=== PATIENT | female | born 1985 | race Caucasian/White ===

== ENCOUNTER → 2017-07-05 15:03 | Outpatient (CLI) | payer MEDICAID, SELFPAY ==
--- NOTE | 2017-07-05 15:08 | RAD_ITS ---
STUDY: X-RAY - LUMBAR SPINE REASON FOR EXAM: Female, 31 years old. Back pain without known injury TECHNIQUE: 5 view(s) of the lumbar spine were obtained. COMPARISON: None FINDINGS: Normal lumbar lordosis. There is no substantial scoliosis. There is a normal alignment of the vertebrae. Normal vertebral bodies and endplates. Normal disc space heights. The soft tissue structures are unremarkable. RAD/L/S Spine Min 4 Views IMPRESSION: Normal x-ray examination of the lumbar spine. Electronically Signed: Bucky Branham DO at 13:34 EDT Tel , Service support ,
--- NOTE | 2017-07-05 15:19 | RAD_ITS ---
STUDY: X-RAY - CERVICAL SPINE REASON FOR EXAM: Female, 31 years old. Neck pain TECHNIQUE: Five view(s) of the cervical spine were obtained. COMPARISON: None FINDINGS: Normal anterior atlantoaxial articulation. Normal odontoid process. There is straightening of the normal cervical lordosis. No significant abnormalities are seen in the vertebral bodies. The discs are normal in appearance. There is no prevertebral soft tissue swelling. The lung apices are clear. RAD/Cerv Spine 4 or 5 Views IMPRESSION: No significant abnormalities are seen radiographically in the cervical spine. Electronically Signed: Kristyn Azul MD at 15:09 EDT Tel Direct: [phone], Service support ,
== END ==
PROVIDERS: Visit Provider Chiropractor
DX: S33.5XXA Sprain of ligaments of lumbar spine, initial encounter (principal); S13.4XXA Sprain of ligaments of cervical spine, initial encounter; X58.XXXA Exposure to other specified factors, initial encounter; Y93.9 Activity, unspecified; Y92.9 Unspecified place or not applicable; Y99.9 Unspecified external cause status
CPT/HCPCS: 72050; 72110

== ENCOUNTER 2017-08-24 11:12 | Emergency (ER) | payer MEDICAID, SELFPAY ==
[2017-08-24 11:13] VITALS: BP 157/86; PULSE 74; RESP 20; TEMP 36.5; O2SAT 98; BMI 43.5
--- NOTE | 2017-08-24 11:49 | EKG12_ITS ---
Test Reason : CHEST PAIN Blood Pressure : / mmHG Vent. Rate : 078 BPM Atrial Rate : 078 BPM P-R Int : 144 ms QRS Dur : 084 ms QT Int : 372 ms P-R-T Axes : 038 053 039 degrees QTc Int : 424 ms Normal sinus rhythm Low voltage QRS Confirmed by JODY RODRIGUEZ, JOI ([id number]), story editor RIGO RONQUILLO ([id number]) on 08/30/2017 1:38:04 PM Referred By: RU/AR Confirmed By:JOI VERA MD
[2017-08-24 11:57] VITALS: BP 116/90; PULSE 79; RESP 13; O2SAT 98
[2017-08-24] MEDS: Aspirin 81 MG TAB.CHEW 324 MG PO (11:57)
[2017-08-24 12:07] LABS: Absolute Lymphocyte Count 2.07 X10^3/ul (0.83-4.51); Absolute Neutrophil Count 3.7 X10^3/uL (2.0-7.7); Basophil# 0.03 X10^3/uL; Basophil% 0.4 % (0-1); Eosinophils% 5.9 % (0-5); Hematocrit 45.1 % (37-47); Hemoglobin 15.3 g/dl (12.0-15.0); Lymphocyte # 2.07 X10^3/ul (4.0); Lymphocyte % 30.5 % (19-41); Mean Corp Hgb Conc 33.9 g/gl (32-36); Mean Corpuscular Hgb 31.8 pg (27.0-32.0); Mean Corpuscular Volume 93.8 fL (81-99); Mean Platelet Vol. 11.2 fl (6.2-12.0); Monocyte# 0.56 X10^3/uL; Monocyte% 8.2 % (0-10); Neutrophil # 3.72 X10^3/uL (2.7-7.7); Neutrophil % 54.9 % (47-70); Platelet Count 221 K/mm3 (150-450); RBC Distribution Width CV 12.7 % (11.6-14.6); RBC Distribution Width SD 43.5 fl (35.1-43.9); Red Blood Count 4.81 M/mm3 (4.2-5.4); White Blood Count 6.8 K/mm3 (4.4-11.0)
[2017-08-24 12:08] LABS: POSITIVE COUNT NO; POSITIVE DIFFERENTIAL NO; POSITIVE MORPHOLOGY NO
[2017-08-24] MEDS: 0.9% Normal Saline 1,000 ML 150 ML IV (12:08)
--- NOTE | 2017-08-24 12:25 | RAD_ITS ---
STUDY: X-RAY CHEST REASON FOR EXAM: Female, 31 years old. Chest pain. TECHNIQUE: Single AP portable view of the chest. COMPARISON: Comparison is made with prior study dated May 04, 2015. FINDINGS: EKG electrodes are seen. The lungs are clear and expanded. There is no demonstrated pleural abnormality. Normal size heart. Normal mediastinum and gay. Normal visualized pulmonary arteries. Normal visualized aortic arch and descending thoracic aorta. Normal visualized thoracic spine. Normal visualized ribs, clavicles, and shoulders. There is no demonstrated abnormality of the visualized soft tissue structures of the upper abdomen. RAD/Chest 1 View (Portable) IMPRESSION: Normal x-ray examination of the chest. Electronically Signed: Andrei Nascimento MD at 12:46 EDT Tel [phone], Service support ,
[2017-08-24 12:40] LABS: D-Dimer Quantitative (DVT/PE) 0.46 FEU/ug/m (0.27-0.49)
[2017-08-24 12:46] LABS: Anion Gap 6 (5-15); BUN 11 mg/dL (7-18); BUN/Creat Ratio 10.6 RATIO (10-20); Calcium,Total 8.4 mg/dL (8.5-10.1); Chloride 108 mmol/L (98-107); Creatinine, Serum 1.04 mg/dL (0.55-1.02); EST Glomerular Filtration Rate 65 mL/min (>60); Est Glom Filt Rate - Afr Amer 78 mL/min (>60); Estimated Creatinine Clearance 74.82 ml/min; Glucose 82 mg/dL (74-106); Potassium 4.4 mmol/L (3.5-5.1); Sodium Level 142 mmol/L (136-145)
[2017-08-24 13:07] VITALS: BP 128/93; PULSE 70; RESP 14; O2SAT 96
[2017-08-24 13:13] VITALS: PULSE 76; RESP 15
[2017-08-24] MEDS: Ipratropium/Albuterol Sulfate 3 ML AMPUL.NEB INHALATION (13:13)
--- NOTE | 2017-08-24 13:28 | ED.VISSUMM ---
- ER Visit Summary Date of Service: 08/24/17 Chief Complaint: [Is breath and chest pain] History of Present Illness: The patient is a 31 F presents the emergency department with shortness of breath for a month. Patient had chest tightness for over a month. Patient's been coughing with some brown sputum produced at times. Yesterday she noticed a lump in her left upper chest and discomfort over the area. Patient describes a pressure on her chest. Patient had some nausea. She has had fatigue. Patient states at times the discomfort in her chest will radiate to her left arm. Patient denies recent travel or surgery. Patient denies any fever although she has had some chills and some sweats off and on. Patient denies recent travel or surgery. [] Physical Examination: [HEENT-PERRLA, EOMI. Cranial nerves II through XII grossly intact. TMs clear. Mucous membranes moist. No adenopathy. Cardiovascular-regular rate and rhythm without murmur or ectopy Lungs-she has wheezing bilaterally, chest wall stable without crepitus or subcu emphysema. Patient has tenderness over the left upper chest where the first rib attaches to the sternum. I do not feel any other significant masses or soft tissue swellings. Abdomen-normoactive bowel sounds, soft, nontender, no rebound or rigidity, no peritoneal signs. Extremities-intact ?4, normal range of motion, normal pulses, atraumatic] Test Results: [EKG obtained on arrival showed a sinus rhythm with a ventricular rate of 78 bpm with no acute ST segment changes. CBC with differential 6.8, hemoglobin 15, hematocrit 45, platelets 227. Chemistries unremarkable. Troponin was less than 0.015. D-dimer was normal at 0.46. Chest x-ray was normal.] Emergency Department Course and Treatment: [Patient received a DuoNeb aerosol and her wheezing resolved. Treatment Plan: [Patient will be started on Zithromax and dispensed an albuterol MDI as well as prednisone.] Disposition: [Discharged home in stable condition] Impression: [Asthmatic bronchitis Chest mdtj-rfvsdxma-cazurmf muscular skeletal] This note was generated with [employer] dictation software. It may contain incorrect words, spelling, and punctuation that were not noted in review of the chart prior to signing ED Disposition - Plan for ED Patient: Chief Complaint: Shortness of Breath Referrals: Care Physician,No Primary [Primary Care Provider] -
--- NOTE | 2017-08-24 13:31 | ED.DCSUM_ITS ---
- ER Visit Summary Date of Service: 08/24/17 Chief Complaint: [Is breath and chest pain] History of Present Illness: The patient is a 31 F presents the emergency department with shortness of breath for a month. Patient had chest tightness for over a month. Patient's been coughing with some brown sputum produced at times. Yesterday she noticed a lump in her left upper chest and discomfort over the area. Patient describes a pressure on her chest. Patient had some nausea. She has had fatigue. Patient states at times the discomfort in her chest will radiate to her left arm. Patient denies recent travel or surgery. Patient denies any fever although she has had some chills and some sweats off and on. Patient denies recent travel or surgery. [] Physical Examination: [HEENT-PERRLA, EOMI. Cranial nerves II through XII grossly intact. TMs clear. Mucous membranes moist. No adenopathy. Cardiovascular-regular rate and rhythm without murmur or ectopy Lungs-she has wheezing bilaterally, chest wall stable without crepitus or subcu emphysema. Patient has tenderness over the left upper chest where the first rib attaches to the sternum. I do not feel any other significant masses or soft tissue swellings. Abdomen-normoactive bowel sounds, soft, nontender, no rebound or rigidity, no peritoneal signs. Extremities-intact ?4, normal range of motion, normal pulses, atraumatic] Test Results: [EKG obtained on arrival showed a sinus rhythm with a ventricular rate of 78 bpm with no acute ST segment changes. CBC with differential 6.8, hemoglobin 15, hematocrit 45, platelets 227. Chemistries unremarkable. Troponin was less than 0.015. D-dimer was normal at 0.46. Chest x-ray was normal.] Emergency Department Course and Treatment: [Patient received a DuoNeb aerosol and her wheezing resolved. Treatment Plan: [Patient will be started on Zithromax and dispensed an albuterol MDI as well as prednisone.] Disposition: [Discharged home in stable condition] Impression: [Asthmatic bronchitis Chest opys-jfggfstz-nlwdrol muscular skeletal] This note was generated with [employer] dictation software. It may contain incorrect words, spelling, and punctuation that were not noted in review of the chart prior to signing ED Disposition - Plan for ED Patient: Chief Complaint: Shortness of Breath Referrals: Care Physician,No Primary [Primary Care Provider] -
--- NOTE | 2017-08-24 13:31 | ED.DEP ---
ED Disposition - Plan for ED Patient: Chief Complaint: Shortness of Breath Instructions: ED Bronchitis Asthmatic, ED Chest Pain Costochondritis Prescriptions: Azithromycin [Zithromax] 250 mg PO DAILY #4 tab Prednisone [Deltasone] 20 mg PO BID #10 tab Referrals: Care Physician,No Primary [Primary Care Provider] - Cody Meek MD [STAFF PHYSICIAN] - 5-7 Days
[2017-08-24] MEDS: Azithromycin 250 MG Tablet 500 MG PO (13:49)
[2017-08-24 13:50] VITALS: BP 138/94; PULSE 81; RESP 18; TEMP 36.6
--- NOTE | 2017-08-25 10:28 | CM.ED ---
ED CALLBACK: Follow-up call placed to patient. Voicemail left with return contact information.
== END 2017-08-24 13:52 | disposition home or self-care (01) ==
PROVIDERS: Emergency Provider Emergency Medicine
DX: J45.909 Unspecified asthma, uncomplicated (principal); R07.89 Other chest pain; Z72.0 Tobacco use
CPT/HCPCS: 71045; 80048; 84484; 85025; 85379; 93005; 94640; 96360; 96361; 99285; J7030; A4216

== ENCOUNTER 2018-01-11 10:34 | Emergency (ER) | payer MEDICAID, SELFPAY ==
[2018-01-11 10:35] VITALS: BP 149/101; PULSE 80; RESP 18; TEMP 36.6; O2SAT 98; BMI 46.5
[2018-01-11 11:26] VITALS: BP 131/78
[2018-01-11 11:30] LABS: Bedside Glucose 80 mg/dL (70-110)
--- NOTE | 2018-01-11 11:36 | ED.VISSUMM ---
- ER Visit Summary Date of Service: 01/11/18 Chief Complaint: Right leg pain History of Present Illness: The patient is a 32 F who states that for the past week she has had a hypersensitivity sensation lateral aspect of the right thigh. She states it also feels like there is a torch burning her skin from the inside. She denies any low back pain. No trauma. No history of diabetes. She has no family doctor. She is a smoker. She denies any rashes. Physical Examination: Afebrile vital signs stable Gen: Well-nourished well-developed Head: Normocephalic atraumatic Eyes: Perrl EOMI ENT: TMs clear no rhinorrhea moist mucous membranes Neck: Supple no lymphadenopathy no JVD nontender CVS: Regular rate rhythm no murmurs normal S1-S2 Respiratory: No distress clear to auscultation bilaterally chest nontender Abdomen: Soft nontender nondistended normal bowel sounds no masses Back: Nontender Extremity: Do not appreciate rash over the lateral aspect of the right thigh. Skin appears hypersensitive. No muscle wasting distally. No muscle weakness. No foot drop. No low back pain. Skin: Normal color no rash Neuro: alert orientated ?3 CN II-XII intact normal strength sensation reflexes gait cerebellar Psych: Normal affect normal mood Test Results: Blood sugar was 80 Emergency Department Course and Treatment: Patient was started on anti-inflammatories (Motrin) as well as prednisone. She is to establish primary care to arrange follow-up. Impression: 1. Peripheral neuropathy right thigh This note was generated with [employer] dictation software. It may contain incorrect words, spelling, and punctuation that were not noted in review of the chart prior to signing ED Disposition - Plan for ED Patient: Disposition: Home or Assisted Living Chief Complaint: Numb/Ting Instructions: ED Neuropathy Peripheral Prescriptions: Ibuprofen [Motrin] 800 mg PO TID PRN PRN #20 tab PRN Reason: Pain Prednisone 10 mg PO UD #33 tab Referrals: Deepika Corona MD [STAFF PHYSICIAN] -
--- NOTE | 2018-01-11 11:39 | ED.DCSUM_ITS ---
- ER Visit Summary Date of Service: 01/11/18 Chief Complaint: Right leg pain History of Present Illness: The patient is a 32 F who states that for the past week she has had a hypersensitivity sensation lateral aspect of the right thigh. She states it also feels like there is a torch burning her skin from the inside. She denies any low back pain. No trauma. No history of diabetes. She has no family doctor. She is a smoker. She denies any rashes. Physical Examination: Afebrile vital signs stable Gen: Well-nourished well-developed Head: Normocephalic atraumatic Eyes: Perrl EOMI ENT: TMs clear no rhinorrhea moist mucous membranes Neck: Supple no lymphadenopathy no JVD nontender CVS: Regular rate rhythm no murmurs normal S1-S2 Respiratory: No distress clear to auscultation bilaterally chest nontender Abdomen: Soft nontender nondistended normal bowel sounds no masses Back: Nontender Extremity: Do not appreciate rash over the lateral aspect of the right thigh. Skin appears hypersensitive. No muscle wasting distally. No muscle weakness. No foot drop. No low back pain. Skin: Normal color no rash Neuro: alert orientated ?3 CN II-XII intact normal strength sensation reflexes gait cerebellar Psych: Normal affect normal mood Test Results: Blood sugar was 80 Emergency Department Course and Treatment: Patient was started on anti- inflammatories (Motrin) as well as prednisone. She is to establish primary care to arrange follow-up. Impression: 1. Peripheral neuropathy right thigh This note was generated with [employer] dictation software. It may contain incorrect words, spelling, and punctuation that were not noted in review of the chart prior to signing ED Disposition - Plan for ED Patient: Disposition: Home or Assisted Living Chief Complaint: Numb/Ting Instructions: ED Neuropathy Peripheral Prescriptions: Ibuprofen [Motrin] 800 mg PO TID PRN PRN #20 tab PRN Reason: Pain Prednisone 10 mg PO UD #33 tab Referrals: Deepika Corona MD [STAFF PHYSICIAN] -
[2018-01-11 11:44] VITALS: RESP 16
--- NOTE | 2018-01-11 11:45 | ED.RN ---
REVIEWED D/C INSTRUCTIONS, FOLLOW UP CARE, PRESCRIPTIONS, AND S/S THAT WOULD WARRANT A RETURN TO THE ED WITH PT. PT VERBALIZED AN UNDERSTANDING AND DENIES FURTHER QUESTIONS FOR THIS RN. PT SKIN P/W/D, RESP EVEN AND UNLABORED, PT A&O X 3, NO DISTRESS NOTED. PT AMBULATED OUT OF ED, GAIT STEADY.
== END 2018-01-11 11:50 | disposition home or self-care (01) ==
LOC: ED 11:47
PROVIDERS: Emergency Provider Emergency Medicine
DX: G62.9 Polyneuropathy, unspecified (principal); F17.200 Nicotine dependence, unspecified, uncomplicated
CPT/HCPCS: 82962; 99282

== ENCOUNTER 2019-10-14 11:08 | Emergency (ER) | payer MEDICAID, SELFPAY ==
[2019-10-14 11:09] VITALS: BP 148/97; PULSE 92; RESP 18; TEMP 36.6; O2SAT 95; BMI 50.3
[2019-10-14 11:11] VITALS: BP 148/97; PULSE 92; RESP 18; TEMP 36.6; O2SAT 95
--- NOTE | 2019-10-14 11:24 | ED.VIS.GEN ---
History of Present Illness Chief Complaint: General Illness Informant: Patient Narrative: 34-year-old female with past medical history of asthma presents with concern for myalgias and cough. States that over the past 3 days she is feeling weak, nauseous, coughing, fevers. States this is been persistent. Went to urgent care this morning but was unable to be seen through a tele-visit. Was told she would be sent to the emergency department anyway. States that she has had 3 episodes of vomiting. Denies any urinary symptoms or abdominal pain. No sick contacts. Patient does work at [employer] where she regularly comes into contact with the public. Is a current smoker. Past Medical History - Allergies and Home Meds Allergies/Adverse Reactions: Allergies sulfamethoxazole [From Bactrim] Allergy (Verified 10/14/19 11:12) Hives trimethoprim [From Bactrim] Allergy (Verified 10/14/19 11:12) Hives Primary Care Physician: Care Physician,No Primary [Primary Care Provider] - Past Medical History: - - asthma Surgical History: - - on 10/30/13 Lives: Spouse/ Significant Other Smoking Status: Current every day smoker Alcohol: None Drugs: None - Family History Maternal Family History: Reports: No pertinent history Paternal Family History: Reports: No pertinent history Review of Systems General: Reports: Chills, Fever. Denies: Sweats Eyes: Denies: Visual changes - bilaterally, Diplopia ENT: Denies: Rhinorrhea, Sore throat Cardiovascular: Denies: Chest pain, Palpitations Respiratory: Reports: Cough. Denies: Dyspnea, Dyspnea on exertion Gastrointestinal: Reports: Nausea, Vomiting. Denies: Abdominal pain, Diarrhea, Melena, Hematochezia Genitourinary: Denies: Dysuria, Hematuria, Frequency Musculoskeletal: Reports: Myalgias. Denies: Back pain, Extremity Pain Skin: Denies: Rash, Wounds Neurological: Denies: Headache, Weakness, Numbness Physical Exam Vital Signs/Narrative: Vital Signs Temp Pulse Resp BP Pulse Ox 10/14/19 11:11 97.9 F 92 18 148/97 H 95 10/14/19 11:09 97.9 F 92 18 148/97 H 95 Inital Vital Signs reviewed: Yes General: Well nourished, Well developed, No Acute Distress Head: Normocephalic, Atraumatic Eyes: Perrl, EOMI ENT: Moist mucous membranes, No rhinorrhea Neck: Supple, Nontender Cardiovascular: Regular rate, Regular rhythm, No murmurs Respiratory: No distress, CTA bilaterally, Chest nontender Abdomen: Soft, Nontender, Nondistended, Normal bowel sounds Back: Nontender, Normal Inspection Extremities: Nontender, No edema Skin: Normal color, No rash Neurological: Alert, Oriented x3, Cranial nerves II-XII grossly intact, Normal Strength, Normal Sensation Psychological: Normal affect, Normal Mood Diagnostic/Tx/Re-eval Clinical Impression(s) from Imaging Studies Chest X-Ray 10/14/19 12:01 IMPRESSION: Normal x-ray examination of the chest. Electronically Signed: Andrei Azam, at 13:06 EDT , Service support , Laboratory Data 10/14/19 11:40 Urine Color Yellow Urine Clarity Sl. Cloudy Urine pH 6.5 Ur Specific [place] 1.015 Urine Protein Negative Urine Glucose (UA) Normal Urine Ketones Negative Urine Occult Blood Negative Urine Nitrite Negative Urine Bilirubin Negative Urine Urobilinogen Normal Ur Leukocyte Esterase Negative Urine RBC 0 SEEN Urine WBC 0 SEEN Ur Squamous Epith Cells 5-10 SEEN Urine Bacteria 1+ Urine Mucus 0 SEEN - Medical Decision Making Patient appears well and nontoxic. Vital signs within normal limits. Chest x-ray shows no pneumonia. Patient was given 1 L normal saline, Toradol, Zofran. Coronavirus testing pending. Advised on quarantine at home until results can be reported. Patient asked to return for new or worsening symptoms. Agreeable and discharged home in stable condition with Zofran and advised on continued p.o. hydration. ED Disposition - Plan for ED Patient: Disposition: Home or Assisted Living Diagnosis: URI (upper respiratory infection) Instructions: ED URI Viral Prescriptions: Ondansetron [Zofran Odt] 4 mg PO Q8H PRN PRN #10 tab PRN Reason: Nausea Transmission Status: Pending to [facility] #30 Referrals: Kilo Maya MD [STAFF PHYSICIAN] - Additional Instructions: Self quarantine at home until results can be reported from coronavirus testing. Practice good hand hygiene. Return for worsening shortness of breath.
[2019-10-14 11:57] LABS: Mucous, Urine 0 SEEN /hpf (<or=2+); Red Blood Cells-Urine 0 SEEN /hpf (0-5); White Blood Cells 0 SEEN /hpf (0-5)
[2019-10-14] MEDS: Ondansetron 4 MG/2 ML Vial IV (12:00)
[2019-10-14] MEDS: Ketorolac 15 MG/ML Vial IM (12:00)
[2019-10-14] MEDS: 0.9% Normal Saline 1,000 ML 999 ML IV (12:01)
--- NOTE | 2019-10-14 12:01 | RAD_ITS ---
STUDY: X-RAY CHEST REASON FOR EXAM: Female, 34 years old. FEVER,BODY ACHES, N/V TECHNIQUE: Single AP portable view of the chest. COMPARISON: Comparison is made with prior study August 24, 2017. FINDINGS: The lungs are clear and expanded. There is no demonstrated pleural abnormality. Normal size heart. Normal mediastinum and gay. Normal visualized pulmonary arteries. Normal visualized aortic arch and descending thoracic aorta. Normal visualized thoracic spine. Normal visualized ribs, clavicles, and shoulders. There is no demonstrated abnormality of the visualized soft tissue structures of the upper abdomen. RAD/Chest 1 View (Portable) IMPRESSION: Normal x-ray examination of the chest. Electronically Signed: Andrei Nascimento, at 13:06 EDT , Service support ,
[2019-10-14 12:14] LABS: Color, Urine Yellow (Yellow); Glucose, Dipstick Normal (Normal); Ketone-Dipstick Negative (Negative); Leukocyte Esterase-Dipstick Negative /ul (Negative); Nitrite-Dipstick Negative (Negative); Occult Blood-Urine Negative /ul (Negative); Protein-Dipstick Negative (Negative); Specific Gravity, Urine 1.015 (1.002-1.030); Urine Bilirubin Dipstick Negative (Negative); Urine Clarity Sl. Cloudy (Clear); Urine Urobilinogen Normal (Normal); Urine pH 6.5 (5.0 - 8.0)
[2019-10-14 12:27] LABS: Bacteria 1+ /hpf (None Seen); Squamous Epithelial Cells - UA 5-10 SEEN /hpf (5-10)
== END 2019-10-14 14:43 | disposition home or self-care (01) ==
PROVIDERS: Emergency Provider Emergency Medicine
DX: J06.9 Acute upper respiratory infection, unspecified (principal); J45.909 Unspecified asthma, uncomplicated; F17.200 Nicotine dependence, unspecified, uncomplicated
CPT/HCPCS: 71045; 81001; 87635; 99283; G2023; J7030; A4216; J2405; U0003

== ENCOUNTER 2020-03-02 19:07 | Emergency (ER) | payer MEDICAID, SELFPAY ==
[2020-03-02 19:08] VITALS: BP 151/101; PULSE 98; RESP 22; TEMP 36.4; O2SAT 98; BMI 47.0
--- NOTE | 2020-03-02 19:50 | ED.DCSUM_ITS ---
History of Present Illness Chief Complaint: Back Informant: Patient Onset: Yesterday Context: Gradual Onset Current Severity: Moderate Maximum Severity: Moderate Narrative: Patient presents with low back tightness over the past 2 days. She points right along the waistband on her lower back. Pain does go down to her right ankle into her left knee. No direct trauma or injury. She states after taking a nap this afternoon she had increased pain. Patient does report a mild dry cough and states she was notified on the way here that she was exposed to someone with Covid. Past Medical History - Allergies and Home Meds Allergies/Adverse Reactions: Allergies sulfamethoxazole [From Bactrim] Allergy (Verified 03/02/20 19:08) Hives trimethoprim [From Bactrim] Allergy (Verified 03/02/20 19:08) Hives Primary Care Physician: Care Physician,No Primary [Primary Care Provider] - Past Medical History: None Surgical History: - - on 10/30/13 Smoking Status: Current every day smoker - Family History Maternal Family History: Reports: No pertinent history Paternal Family History: Reports: No pertinent history Review of Systems General: Denies: Chills, Fever Eyes: Denies: Visual changes - bilaterally ENT: Denies: Bilateral ear pain Cardiovascular: Denies: Chest pain Respiratory: Reports: Cough. Denies: Dyspnea Gastrointestinal: Denies: Abdominal pain, Vomiting, Diarrhea Musculoskeletal: Reports: Back pain. Denies: Swelling Skin: Denies: Wounds Neurological: Denies: Headache, Weakness, Parasthesia Hematologic: Denies: Easy bruising, Easy bleeding Allergy: Denies: Uticaria Physical Exam Vital Signs/Narrative: Vital Signs Temp Pulse Resp BP Pulse Ox 03/02/20 19:08 97.6 F L 98 22 H 151/101 H 98 Inital Vital Signs reviewed: Yes General: Well nourished, Well developed Head: Normocephalic ENT: Moist mucous membranes Neck: Supple Cardiovascular: Regular rate, Regular rhythm Respiratory: No distress, CTA bilaterally Abdomen: Soft, Nontender Back: - - Reproducible tenderness in the low lumbar region as well as the bilateral paraspinal muscles. No skin change. Normal strength and sensation in the lower extremities. Skin: Normal color Neurological: Alert, Oriented x3, Normal Strength, Normal Sensation Psychological: Normal affect Diagnostic/Tx/Re-eval - Medical Decision Making Patient be treated with Naprosyn and Flexeril for her back. Covid swab will be sent and she will be texted the results. ED Disposition - Plan for ED Patient: Disposition: Home or Assisted Living Diagnosis: Lumbar strain, Muscle spasm Instructions: ED Muscle Spasm, ED Back Pain (Acute or Chronic) Prescriptions: cycloBENZAPRine HCl [Flexeril] 10 mg PO TID PRN #20 tab PRN Reason: Muscle Spasm Transmission Status: Pending to [facility] #30 Naproxen [Naprosyn] 500 mg PO BID PRN PRN #20 tab PRN Reason: Pain Score 4-10 Transmission Status: Pending to [facility] #30 Referrals: Kavon Tellez MD [STAFF PHYSICIAN] - As Needed
[2020-03-02] MEDS: cycloBENZAPRine HCl 10 MG Tablet PO (20:21)
[2020-03-02] MEDS: Naproxen 500 MG Tablet PO (20:21)
== END 2020-03-02 20:31 | disposition home or self-care (01) ==
LOC: ED 19:56
PROVIDERS: Emergency Provider Emergency Medicine
DX: S39.012A Strain of muscle, fascia and tendon of lower back, initial encounter (principal); M62.838 Other muscle spasm; F17.200 Nicotine dependence, unspecified, uncomplicated; X58.XXXA Exposure to other specified factors, initial encounter
CPT/HCPCS: 87426; 99283

== ENCOUNTER 2020-03-23 07:41 | Emergency (ER) | payer MEDICAID, SELFPAY ==
[2020-03-23 07:42] VITALS: BP 152/122; PULSE 86; RESP 16; TEMP 35.8; O2SAT 100; BMI 50.7
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
--- NOTE | 2020-03-23 08:52 | ED.DCSUM_ITS ---
- ER Visit Summary Date of Service: 03/23/20 Chief Complaint: Fall History of Present Illness: The patient is a 34 F who fell day night. She slipped and hit her head and the back of her neck. She is unsure if she lost consciousness. Her symptoms are worse with light and activity. She reports headache, blurry vision, nausea vomiting. No blood thinner use. Physical Examination: Afebrile and vital signs unremarkable except for hypertension. Head and neck are atraumatic. HEENT exam is unremarkable. She does have some tenderness to her left neck in the suboccipital region. Skin appears normal. Cranial nerves grossly intact. Normal strength, sensation, cerebellar testing. Test Results: CT brain and cervical spine showed straightening of the cervical spine, but otherwise unremarkable. No fracture or bleeding. Emergency Department Course and Treatment: Patient was treated with Motrin and Zofran. She was given concussion precautions. Work note. Outpatient follow- up. Treatment Plan: As above Disposition: Discharge Impression: Concussion, cervical strain This note was generated with [employer] dictation software. It may contain incorrect words, spelling, and punctuation that were not noted in review of the chart prior to signing ED Disposition - Plan for ED Patient: Referrals: Care Physician,No Primary [Primary Care Provider] -
--- NOTE | 2020-03-23 09:02 | ED.DEP ---
ED Disposition - Plan for ED Patient: Instructions: ED Concussion Prescriptions: Ondansetron [Zofran Odt] 4 mg PO Q8H PRN PRN #10 tab PRN Reason: Nausea Prescription Printed Referrals: Care Physician,No Primary [Primary Care Provider] -
[2020-03-23] MEDS: Ibuprofen 600 MG Tablet PO (09:05)
[2020-03-23] MEDS: Ondansetron ODT 4 MG Tablet PO (09:05)
--- NOTE | 2020-03-23 09:08 | ED.RN ---
DISCHARGE INSTRUCTIONS GIVEN TO AND REVIEWED WITH PATIENT, PATIENT DENIES QUESTIONS OR CONCERNS AND VOICES UNDERSTANDING OF DISCHARGE INSTRUCTIONS. PT AMBULATES OUT OF ROOM WITHOUT DIFFICULTY.
== END 2020-03-23 09:09 | disposition home or self-care (01) ==
LOC: ED 08:44
PROVIDERS: Emergency Provider Emergency Medicine
DX: S06.0X9A Concussion with loss of consciousness of unspecified duration, initial encounter (principal); S16.1XXA Strain of muscle, fascia and tendon at neck level, initial encounter; W01.10XA Fall on same level from slipping, tripping and stumbling with subsequent striking against unspecified object, initial encounter; Y93.9 Activity, unspecified; Y92.9 Unspecified place or not applicable; Y99.9 Unspecified external cause status; I10 Essential (primary) hypertension; Z72.0 Tobacco use
CPT/HCPCS: 70450; 72125; 99283

== ENCOUNTER 2020-06-03 18:53 | Emergency (ER) | payer MEDICAID, SELFPAY ==
[2020-06-03 18:54] VITALS: BP 156/111; PULSE 99; RESP 22; TEMP 35.9; O2SAT 98; BMI 47.0
[2020-06-03 19:37] VITALS: BP 122/94; PULSE 80; RESP 18; TEMP 36.9; O2SAT 100
--- NOTE | 2020-06-03 20:27 | EKG12_ITS ---
Test Reason : SOB Blood Pressure : / mmHG Vent. Rate : 086 BPM Atrial Rate : 086 BPM P-R Int : 142 ms QRS Dur : 094 ms QT Int : 382 ms P-R-T Axes : 029 063 044 degrees QTc Int : 457 ms Normal sinus rhythm Normal ECG Confirmed by JODY RODRIGUEZ, JOI ([id number]), supervising editor news reel ELSIE CASTILLO ([id number]) on 06/08/2020 2:33:16 PM Referred By: Confirmed By:JOI VERA MD
[2020-06-03] MEDS: Ipratropium/Albuterol Sulfate 3 ML AMPUL.NEB INHALATION (20:42)
[2020-06-03 20:50] VITALS: PULSE 88; RESP 20
[2020-06-03] MEDS: Ondansetron 4 MG/2 ML Vial IV (20:56)
[2020-06-03] MEDS: Ketorolac 30 MG/ML Syringe IV (20:56)
[2020-06-03] MEDS: 0.9% Normal Saline 1,000 ML 1000 ML IV (20:56)
[2020-06-03 21:06] VITALS: PULSE 90; RESP 18; O2SAT 100
--- NOTE | 2020-06-03 21:06 | RAD_ITS ---
STUDY: X-RAY CHEST REASON FOR EXAM: Female, 34 years old. Shortness of breath. TECHNIQUE: Frontal view of the chest COMPARISON: 10/14/19 FINDINGS: There is airspace opacity in the right lower lobe. The lungs are otherwise clear. There are no pleural effusions. There is no pneumothorax. The heart is normal in size. The visualized osseous structures are within normal limits. RAD/Chest 1 View (Portable) IMPRESSION: Right lower lobe infiltrate. Electronically Signed: Lele Klein MD at 21:32 EST Tel , Service support ,
[2020-06-03 21:25] LABS: D-Dimer Quantitative (DVT/PE) 0.48 FEU/ug/m (0.27-0.49)
[2020-06-03 22:02] VITALS: O2SAT 99
--- NOTE | 2020-06-03 22:07 | ED.DCSUM_ITS ---
- ER Visit Summary Date of Service: 06/03/20 Chief Complaint: Shortness of breath History of Present Illness: The patient is a 34 F presenting with shortness of breath, myalgias. Patient states this started yesterday. She complains of fatigue, myalgias. She has had sore throat, shortness of breath, nonproductive cough, nausea, vomiting. She has myalgias and headache. She denies fever. She states people at her work have been out sick as well. She denies known exposure to Covid. Denies other complaints. Physical Examination: Vitals are stable. Patient is afebrile. Alert no acute distress. Pulse ox 100% on room air HEENT exam is unremarkable. Pharynx is normal. Neck is supple. Lungs are wheezing bilaterally. Heart is regular rate and rhythm. Abdomen is soft nontender nondistended. Extremities are unremarkable. Skin is warm and dry. Remainder of exam is unremarkable. Emergency Department Course and Treatment: EKG is sinus rhythm rate of 86 with no acute ischemic changes. D-dimer is normal. Troponin is negative. Chest x-ray shows right lower lobe infiltrate. Covid is negative. Patient given albuterol, Atrovent aerosols. She is given Toradol, Zofran, IV fluids. Her ambulatory pulse ox is 96% on room air. She is resting comfortably on reevaluation. She will be started on doxycycline. She is advised to follow-up with her primary care physician. Advised return to ED for worsening complaints. Disposition: Discharge home Impression: Community-acquired pneumonia This note was generated with [employer] dictation software. It may contain incorrect words, spelling, and punctuation that were not noted in review of the chart prior to signing ED Disposition - Plan for ED Patient: Referrals: Care Physician,No Primary [Primary Care Provider] -
--- NOTE | 2020-06-03 22:12 | ED.DEP ---
ED Disposition - Plan for ED Patient: Instructions: ED Pneumonia (Adult) Prescriptions: Doxycycline 100 mg PO BID #20 cap Prescription Printed Referrals: Care Physician,No Primary [Primary Care Provider] -
[2020-06-03] MEDS: Doxycycline 100 MG CAPSULE PO (22:23)
[2020-06-03 22:24] VITALS: RESP 22
== END 2020-06-03 22:25 | disposition home or self-care (01) ==
LOC: ED 21:24
PROVIDERS: Emergency Provider Emergency Medicine
DX: J18.9 Pneumonia, unspecified organism (principal); Z20.822 Contact with and (suspected) exposure to COVID-19; R11.2 Nausea with vomiting, unspecified; Z72.0 Tobacco use
CPT/HCPCS: 71045; 84484; 85379; 87426; 93005; 94640; 96361; 96374; 96375; 99284; J7030; J2405

== ENCOUNTER 2020-06-07 18:47 | Emergency (ER) | payer MEDICAID, SELFPAY ==
[2020-06-07 18:48] VITALS: BP 161/84; PULSE 100; RESP 24; TEMP 35.1; O2SAT 98; BMI 47.0
--- NOTE | 2020-06-07 19:09 | EKG12_ITS ---
Test Reason : SOB Blood Pressure : / mmHG Vent. Rate : 091 BPM Atrial Rate : 091 BPM P-R Int : 134 ms QRS Dur : 084 ms QT Int : 362 ms P-R-T Axes : 036 052 045 degrees QTc Int : 445 ms Normal sinus rhythm Normal ECG Confirmed by JODY RODRIGUEZ, JOI ([id number]), manuscript editor ELSIE CASTILLO ([id number]) on 06/10/2020 10:48:56 AM Referred By: Confirmed By:JOI VERA MD
--- NOTE | 2020-06-07 19:10 | CT_ITS ---
STUDY: CTA CHEST REASON FOR EXAM: Female, 34 years old. pneumonia RADIATION DOSAGE (If Supplied By Facility): CTDIvol = ( 12.67 ) mGy, DLP = ( 1018.55 ) mGycm TECHNIQUE: The examination was performed with the intravenous administration of IV 100mL Isovue-370. Post-processing of the angiographic images was performed, with multiplanar reformation and 3D reconstruction. Individualized dose optimization techniques were used for this CT. COMPARISON: None. FINDINGS: Normal enhancement of the main pulmonary artery and right and left pulmonary arteries. Normal enhancement of the bilateral peripheral pulmonary arteries. There is no demonstrated pulmonary embolism. Normal thoracic aorta and visualized great vessels. There is no demonstrated aortic dissection. Normal heart and pericardium. Normal mediastinum. Normal hilar regions. Normal visualized trachea and bronchi. The lungs are well expanded. Normal pulmonary parenchyma. Normal pleura. Normal chest wall structures. Degenerative vertebral changes. Normal visualized upper abdomen. CT/CTA Chest W/WO Contrast IMPRESSION: No demonstrated pulmonary embolism or arterial dissection. Electronically Signed: Abhay Huber DO at 21:16 EST Tel [phone], Service support ,
--- NOTE | 2020-06-07 19:17 | ED.DCSUM_ITS ---
History of Present Illness Chief Complaint: Shortness of Breath Informant: Patient Onset: Days Context: Gradual Onset Current Severity: Mild Maximum Severity: Moderate Narrative: Patient present secondary to increased shortness of breath and chest pain. She was seen in the ER on June 03 after developing shortness of breath that morning. She was diagnosed with right lower lobe infiltrate. She was started on doxycycline but stopped after taking her second dose because of itching. She reports increased shortness of breath and sharp pain that shoots in her right shoulder blade to her left. She had very minimal cough. No fever. Her Covid test on the third was negative. - Past Medical History (1) GERD (gastroesophageal reflux disease) Status: Chronic (2) Anxiety and depression Status: Chronic Past Medical History - Allergies and Home Meds Allergies/Adverse Reactions: Allergies sulfamethoxazole [From Bactrim] Allergy (Verified 06/07/20 18:51) Hives trimethoprim [From Bactrim] Allergy (Verified 06/07/20 18:51) Hives doxycycline Adverse Reaction (Verified 06/07/20 18:51) Itching Primary Care Physician: Care Physician,No Primary [Primary Care Provider] - Prior records reviewed: Yes Surgical History: - - on 10/30/13 Smoking Status: Current every day smoker - Family History Maternal Family History: Reports: No pertinent history Paternal Family History: Reports: No pertinent history Review of Systems General: Denies: Chills, Fever Eyes: Denies: Visual changes - bilaterally ENT: Denies: Bilateral ear pain Cardiovascular: Reports: Chest pain Respiratory: Reports: Dyspnea, Cough - Minimal cough Gastrointestinal: Denies: Abdominal pain, Vomiting, Diarrhea Genitourinary: Denies: Dysuria Musculoskeletal: Denies: Swelling, Extremity Pain Neurological: Denies: Headache Endocrine: Denies: Polyuria, Polydipsia Hematologic: Denies: Easy bruising Allergy: Denies: Uticaria Physical Exam Vital Signs/Narrative: Vital Signs Temp Pulse Resp BP Pulse Ox 06/07/20 18:48 95.1 F L 100 24 H 161/84 H 98 Inital Vital Signs reviewed: Yes General: Well nourished, Well developed Head: Normocephalic Neck: Supple Cardiovascular: Regular rate, Regular rhythm Respiratory: No distress, - - Lung sounds slightly diminished at the right base Abdomen: Soft, Nontender Extremities: Nontender Skin: Normal color Neurological: Alert, Oriented x3 Psychological: - - Anxious Diagnostic/Tx/Re-eval Impressions Chest CTA 06/07/20 19:10 IMPRESSION: No demonstrated pulmonary embolism or arterial dissection. Electronically Signed: Abhay Huber DO at 21:16 EST Tel [phone], Service support , 06/07/20 19:10 CTA Chest W/WO Contrast [CT] Stat Laboratory Results 06/07/20 06/07/20 06/07/20 19:40 19:40 19:40 WBC 8.6 RBC 4.76 Hgb 15.1 H Hct 46.0 MCV 96.6 MCH 31.7 MCHC 32.8 RDW Std Deviation 45.7 H RDW Coeff of Seven 12.7 Plt Count 274 MPV 11.7 Immature Gran % (Auto) 0.200 Neut % (Auto) 58.3 Lymph % (Auto) 31.4 [place] % (Auto) 7.4 Eos % (Auto) 2.1 Baso % (Auto) 0.6 Absolute Neuts (auto) 5.0 Absolute Lymphs (auto) 2.70 Nucleated RBC % 0 Sodium 139 Potassium 4.0 Chloride 106 Carbon Dioxide 28.0 Anion Gap 5 BUN 11 Creatinine 0.91 Estim Creat Clear Calc 83.11 Est GFR (MDRD) Af Amer 90 Est GFR (MDRD) Non-Af 74 BUN/Creatinine Ratio 12.1 Glucose 142 H Lactic Acid 1.1 Calcium 8.9 - EKG Initial EKG Interpretation: Sinus Rhythm - Sinus at 91 with no acute ischemia. - Medical Decision Making Patient was given morphine and Zofran for pain control. Work-up from the third was reviewed. CBC and chemistry studies are unremarkable tonight. CTA of the chest reveals no evidence of PE, and no evidence of infiltrate. On repeat evaluation patient is resting more comfortably states the pain is starting to return. Test results are discussed with her. She was advised there is no evidence of pneumonia on her scan and she does not need antibiotics. Patient was tested for Covid on the third, however that was the day of her symptom onset. We will reswab her for Covid at this time and discharge her to home. She is given a work note for tomorrow. She will be treated for viral syndrome. ED Disposition - Plan for ED Patient: Disposition: Home or Assisted Living Diagnosis: Viral syndrome Instructions: ED Viral Syndrome (Adult) Prescriptions: Naproxen [Naprosyn] 500 mg PO BID PRN PRN #20 tab PRN Reason: Pain Score 4-10 Transmission Status: Pending to [facility] Hydrocodone Bitart/Apap 5-325 [[place] 5MG-325MG] 1 tablet PO Q6H PRN PRN 3 Days #10 tablet PRN Reason: Pain Transmission Status: Sent to [facility] Referrals: Idalmis Biswas MD [STAFF PHYSICIAN] - As Needed
[2020-06-07] MEDS: Ondansetron 4 MG/2 ML Vial IV (19:41)
[2020-06-07] MEDS: Morphine 4 MG/ML Syringe IV (19:41)
[2020-06-07] MEDS: 0.9% Normal Saline 1,000 ML 150 ML IV (19:43)
[2020-06-07 19:44] VITALS: BP 159/121; PULSE 89; RESP 18; TEMP 36.9; O2SAT 95
[2020-06-07 19:56] LABS: Basophil# 0.05 X10^3/uL; Basophil% 0.6 % (0-1); Eosinophil# 0.18 X10^3/uL; Eosinophils% 2.1 % (0-5); Hemoglobin 15.1 g/dL (12.0-15.0); Lymphocyte % 31.4 % (19-41); Mean Corp Hgb Conc 32.8 g/dL (32-36); Mean Corpuscular Hgb 31.7 pg (27.0-32.0); Mean Corpuscular Volume 96.6 fL (81-99); Mean Platelet Vol. 11.7 fl (6.2-12.0); Monocyte# 0.64 X10^3/uL; Monocyte% 7.4 % (0-10); NRBC Flagged by Analyzer 0 % (0-5); Neutrophil # 5.02 X10^3/uL (2.7-7.7); Neutrophil % 58.3 % (47-70); Platelet Count 274 K/mm3 (150-450); RBC Distribution Width CV 12.7 % (11.6-14.6); RBC Distribution Width SD 45.7 fl (35.1-43.9); Red Blood Count 4.76 M/mm3 (4.2-5.4); White Blood Count 8.6 K/mm3 (4.4-11.0)
[2020-06-07 20:00] VITALS: BP 124/74; PULSE 84; RESP 15; TEMP 36.9; O2SAT 94
[2020-06-07 20:10] LABS: Anion Gap 5 (5-15); BUN 11 mg/dL (7-18); BUN/Creat Ratio 12.1 RATIO (10-20); Calcium,Total 8.9 mg/dL (8.5-10.1); Chloride 106 mmol/L (98-107); Creatinine, Serum 0.91 mg/dL (0.55-1.02); EST Glomerular Filtration Rate 74 mL/min (>60); Est Glom Filt Rate - Afr Amer 90 mL/min (>60); Estimated Creatinine Clearance 83.11 ml/min; Glucose 142 mg/dL (74-106); Sodium Level 139 mmol/L (136-145)
[2020-06-07 20:22] LABS: Lactic Acid 1.1 mmol/L (0.4-1.9)
[2020-06-07 21:31] VITALS: BP 137/77; PULSE 82; RESP 14; TEMP 36.9; O2SAT 98
[2020-06-07] MEDS: HYDROcodone Bitartrate/Apap 5/325 Tablet PO (21:35)
[2020-06-07] MEDS: Naproxen 500 MG Tablet PO (21:36)
== END 2020-06-07 21:41 | disposition home or self-care (01) ==
PROVIDERS: Emergency Provider Emergency Medicine
DX: B34.9 Viral infection, unspecified (principal); R06.02 Shortness of breath; Z20.822 Contact with and (suspected) exposure to COVID-19; K21.9 Gastro-esophageal reflux disease without esophagitis; F32.9 Major depressive disorder, single episode, unspecified; F41.9 Anxiety disorder, unspecified; F17.200 Nicotine dependence, unspecified, uncomplicated
CPT/HCPCS: 71275; 80048; 83605; 85025; 87040; 87426; 93005; 96361; 96374; 96375; 99285; J7030; Q9967; A4216; J2405

== ENCOUNTER 2020-07-23 11:58 | Day surgery (SDC) | payer MEDICAID, SELFPAY ==
[2020-07-23 12:18] VITALS: BP 156/80; PULSE 75; RESP 16; TEMP 36.9; O2SAT 95; BMI 52.2
[2020-07-23] MEDS: Lactated Ringers 1,000 ML 100 ML IV (12:28)
--- NOTE | 2020-07-23 13:00 | IMM_PTH ---
PATIENT: THAI HIGHTOWER LOC: EN U#:[id number] AGE/SX: 34/F ROOM: RE07/23/[address]: Dr. Fracisco Faust MD : 1985 BED: DIS: 07/23/2020 SPEC #: [id number] RECD: 07/24/20 09:21 STATUS: MIGDALIA REQ #: [id number] MIGUEL: 07/23/20 13:[address]: Fracisco Faust DEPT: IMMUNOHISTOCHEMISTRY RECD BY: Zulma Hidalgo ENTERED: 07/24/20 09:21 SP TYPE: IMMUNO OTHR DR: No Primary Care Phys Tissues: Stomach, NOS Procedures: H Pylori (initial) PHYSICIAN & INSTITUTION [place] [phone] SPECIMEN INFORMATION: Tissue Source: Antrum biopsy Clinical Info: Heartburn Specimen Number: [id number] CPT code: 45741 METHODOLOGY: Deparaffinized sections of prefer/formalin-fixed tissue or PAP/DQ stained slides are incubated with monoclonal/polyclonal antibodies/oligonucleotide probes. Localization is made via biotin free immunoperoxidase method. Appropriate controls are performed and reacted as expected. Results on target cell population are indicated in the following table: RESULTS: ANTIBODY / CLONE RESULT H Pylori (polyclonal) negative These tests were developed and their performance characteristics determined by [facility]. They may not have been cleared or approved by the U.S. Food and Drug Administration. The FDA has determined that such clearance or approval is not necessary. INTERPRETATION: Antrum biopsy: Negative for Helicobacter pylori organisms. SJ:verónica 07/27/2020
--- NOTE | 2020-07-23 13:00 | EGD_PTH ---
PATIENT: THAI HIGHTOWER LOC: EN U#:[id number] AGE/SX: 34/F ROOM: RE07/23/[address]: Dr. Fracisco Faust MD : 1985 BED: DIS: 07/23/2020 SPEC #: [id number] RECD: 07/23/20 14:36 STATUS: MIGDALIA REQ #: [id number] MIGUEL: 07/23/20 13:[address]: Fracisco Faust DEPT: SURGICAL PATHOLOGY RECD BY: Rosie Mustafa ENTERED: 07/24/20 08:11 SP TYPE: EGD BIOPSY OTHR DR: No Primary Care Phys Tissues: Gastric mucous membrane Procedures: Surgery Specimen Level IV HEADER OPERATION: EGD ([facility] [place]) PRE-OP DIAGNOSIS: Heartburn TISSUE SUBMITTED: Antrum biopsy for H. pylori and path MICROSCOPIC DIAGNOSIS Antrum biopsy: Minimal gastritis. See microscopic description and comment. SJ:verónica 07/27/2020 COMMENT The results of immunohistochemistry for Helicobacter pylori will be reported separately ([id number]). MICROSCOPIC DESCRIPTION Slides are reviewed. The specimen shows fragments of gastric mucosa with chronic inflammatory cell infiltrates in the lamina propria consisting of lymphocytes and plasma cells, consistent with minimal chronic gastritis. GROSS DESCRIPTION Received in fixative is one container labeled with the patient's name and designated antrum biopsy. The specimen consists of one irregular fragment of light restrepo soft tissue that measures 0.7 x 0.2 x 0.1 cm. The specimen is totally submitted in one cassette. / AM:verónica 07/24/20 TC:3 [facility]: [id number]
[2020-07-23 13:46] VITALS: BP 113/73; BP 156/80; PULSE 85; RESP 16; TEMP 36.6; O2SAT 100
[2020-07-23 13:51] VITALS: BP 105/75; BP 156/80; PULSE 84; RESP 16; O2SAT 98
--- NOTE | 2020-07-23 13:51 | OP.EGD_ITS ---
Patient Name: Myra Villanueva Procedure Date: 07/23/2020 12:08 PM Date of : 1985 Age: 34 Procedure: Upper GI endoscopy Indications: Heartburn Providers: Fracisco Faust MD Medicines: See the Anesthesia note for documentation of the administered medications Patient Profile: This is a 34 year old female. Refer to note in patient chart for documentation of history and physical. Complications: No immediate complications. Procedure: Pre-Anesthesia Assessment: - Prior to the procedure, a History and Physical was performed, and patient medications and allergies were reviewed. The patient's tolerance of previous anesthesia was also reviewed. The risks and benefits of the procedure and the sedation options and risks were discussed with the patient. All questions were answered, and informed consent was obtained. Prior Anticoagulants: The patient has taken no previous anticoagulant or antiplatelet agents. ASA Grade Assessment: III - A patient with severe systemic disease. After reviewing the risks and benefits, the patient was deemed in satisfactory condition to undergo the procedure. After obtaining informed consent, the endoscope was passed under direct vision. Throughout the procedure, the patient's blood pressure, pulse, and oxygen saturations were monitored continuously. The gastroscope was introduced through the mouth, and advanced to the second part of duodenum. The upper GI endoscopy was accomplished without difficulty. The patient tolerated the procedure well. Scope In: 1:37:57 PM Scope Out: 1:40:37 PM Total Procedure Duration Time 0 hours 2 minutes 40 seconds Findings: The Z-line was regular and was found 40 cm from the incisors. Localized mild inflammation characterized by linear erosions was found in the prepyloric region of the stomach. Biopsies were taken with a cold forceps for Helicobacter pylori testing. The examined duodenum was normal. No biopsies or other specimens were collected for this exam. Impression: - Z-line regular, 40 cm from the incisors. - Gastritis. Biopsied. - Normal examined duodenum. No specimens collected. Recommendation: - Discharge patient to home. - Resume previous diet. - Continue present medications. - Await pathology results. - Repeat upper endoscopy PRN for surveillance. - Return to nurse practitioner in 1 week. Procedure Code(s): --- Professional --- 45692, Esophagogastroduodenoscopy, flexible, transoral; with biopsy, single or multiple Diagnosis Code(s): --- Professional --- K29.70, Gastritis, unspecified, without bleeding R12, Heartburn CPT copyright 2017 [employer]. All rights reserved. The codes documented in this report are preliminary and upon product specialist review may be revised to meet current compliance requirements. MD Fracisco Sneed MD 07/23/2020 1:50:55 PM This report has been signed electronically. Number of Addenda: 0 Note Initiated On: 07/23/2020 12:08 PM
--- NOTE | 2020-07-23 13:51 | OP.CCLET_ITS ---
07/23/2020 No Primary Care Physician Re : Upper GI endoscopy procedure for Myra Villanueva Dear Care Physician This procedure was performed on July. My impressions and recommendations are as follows: Impressions : - Z-line regular, 40 cm from the incisors. - Gastritis. Biopsied. - Normal examined duodenum. No specimens collected. Recommendations : - Discharge patient to home. - Resume previous diet. - Continue present medications. - Await pathology results. - Repeat upper endoscopy PRN for surveillance. - Return to nurse practitioner in 1 week. My findings are described in the full procedure note, which is enclosed. If I can be of further assistance, please feel free to contact me at Doctor phone number(s): , Fax: [phone], Work: . Sincerely, MD Fracisco Sneed MD 07/23/2020 1:50:55 PM This report has been signed electronically.
[2020-07-23 13:56] VITALS: BP 106/70; BP 156/80; PULSE 82; RESP 16; O2SAT 99
[2020-07-23 14:01] VITALS: BP 109/71; BP 156/80; PULSE 84; RESP 18; TEMP 36.7; O2SAT 97
[2020-07-23 14:43] VITALS: BP 156/80
== END 2020-07-23 14:45 | disposition home or self-care (01) ==
LOC: EN 11:59 → AC 11:59
PROVIDERS: Referring Provider Surgery; Visit Provider Surgery
PROC: 0DJ08ZZ Inspection of Upper Intestinal Tract, Via Natural or Artificial Opening Endoscopic (ICD-10-PCS; CPT 43235; principal; 2020-07-23 12:55)
DX: K29.70 Gastritis, unspecified, without bleeding (principal); R12 Heartburn; K21.9 Gastro-esophageal reflux disease without esophagitis; Z20.822 Contact with and (suspected) exposure to COVID-19; J45.909 Unspecified asthma, uncomplicated; F32.9 Major depressive disorder, single episode, unspecified; F41.9 Anxiety disorder, unspecified; E66.9 Obesity, unspecified; Z68.43 Body mass index [BMI] 50.0-59.9, adult; F17.200 Nicotine dependence, unspecified, uncomplicated; Z79.899 Other long term (current) drug therapy
CPT/HCPCS: 43239; 87426; 88305; 88342; C9803; J7120; J2405

== ENCOUNTER 2020-08-26 19:18 | Emergency (ER) | payer MEDICAID, SELFPAY ==
[2020-08-26 19:18] VITALS: BP 155/115; PULSE 96; RESP 22; TEMP 36.6; O2SAT 95; BMI 52.1
--- NOTE | 2020-08-26 19:28 | EKG12_ITS ---
Test Reason : DYSRHYTHMIA Blood Pressure : / mmHG Vent. Rate : 095 BPM Atrial Rate : 095 BPM P-R Int : 112 ms QRS Dur : 082 ms QT Int : 346 ms P-R-T Axes : 024 142 141 degrees QTc Int : 434 ms Cannot Exclude Limb Lead Misplacement Recommend Repeat EKG Subsequent Interrpretation Assumes Correct Lead Placement Consider Sinus Vs Ectopic Atrial Rhythm Right axis deviation Low voltage QRS (Limb Leads) Lateral AL, age undetermined, cannot be excluded Confirmed by JODY RODRIGUEZ, JOI ([id number]), industrial editor ELSIE CASTILLO ([id number]) on 08/27/2020 11:27:19 AM Referred By: ANURADHA Confirmed By:JOI VERA MD
--- NOTE | 2020-08-26 19:30 | EDS_ITS ---
HPI History of Present Illness Chief Complaint: Shortness of Breath Detail of Chief Complaint: Patient short of breath for about 4 5 days. Informant: patient Onset/Context/Timing Quality: Positive for Dyspnea on exertion Associated Symptoms cough, sore throat, chills and sweats Narrative Narrative: Patient with shortness of breath for 5 days. She had a cough and sore throat as well as headache and body aches. Patient was seen in urgent care few days ago and was given a Covid test that was negative. Patient also was started on prednisone and Tessalon Perles and an albuterol inhaler. Patient was seen back in urgent care today and was told to come to the ER because of her vital signs merited evaluation in the emergency department. Patient's not sure which vital signs were an issue. Patient describes the chest discomfort with deep breath. She denies recent travel or surgery. She denies months. Denies exposures. She does not vaccinated against COVID-19. Prior similar symptoms: No [facility] Medical History (Updated 08/26/20 @ 22:[address] Soha Sunshine, ) Depression Home Medications ascorbic acid (vitamin C) 500 mg PO DAILY 07/20/20 [History Last Taken Unknown] bupropion HCl 150 mg PO BID 07/20/20 [History Last Taken Unknown] omeprazole 20 mg PO DAILY 07/20/20 [History Last Taken Unknown] Allergy/AdvReac Type Severity Reaction Status Date / Time sulfamethoxazole Allergy Hives Verified 08/26/20 19:21 [From Bactrim] trimethoprim [From Bactrim] Allergy Hives Verified 08/26/20 19:21 doxycycline AdvReac Itching Verified 08/26/20 19:21 Social History Smoking Status: Current every day smoker tobacco type: cigarettes ROS ROS ED Constitutional Constitutional ED: Reports systems reviewed and no addt'l complaints, except as documented; Denies body ache(s), change in weight or chills Eyes Eyes: Denies acute decrease in peripheral vision, change in vision, double vision or loss of vision ENT ENT ED: Reports none and sore throat; Denies ear pain, lip swelling, loss taste/smell, neck pain or otalgia Cardiovascular Cardiovascular: Reports none; Denies abdominal pain, chest pain with activity, leg edema, lightheadedness, palpitations, rapid heart rate or syncope Respiratory/Chest Respiratory/Chest: Reports none, cough, dyspnea and dyspnea on exertion; Denies change in mental status, dry cough, hemoptysis, shortness of breath at rest, shortness of breath with exertion or sputum Gastrointestinal Gastrointestinal: Reports none; Denies abdominal pain, change in stool character, diarrhea, hematemesis, hematochezia, melena, rectal bleeding or vomiting Genitourinary Genitourinary ED: Reports none; Denies abdominal discomfort, anuria, dysuria, genital pain or polyuria Musculoskeletal Musculoskeletal: Reports none and myalgias; Denies arthralgias, back pain, difficulty walking, extremity pain or muscle weakness Integumentary Reports none; Denies abscess or rash Neurologic Neurologic: Reports none and headache(s); Denies abnormal gait, confusion, focal weakness, frequent falls, loss of vision, numbness, paresthesias, radicular pain, vertigo or weakness Psychiatric Psychiatric: Reports systems reviewed and no addt'l complaints, except as documented and none; Denies behavioral changes, confusion, difficulty concentrating, hallucinations, suicidal ideation, tactile hallucinations or visual hallucinations Endocrine Endocrinology: Denies none, cold intolerance, excessive sweating, fatigue or heat intolerance Hematologic/Lymphatic Hematologic/Lymphatic: Reports none; Denies anemia, easy bleeding or easy bruising Allergic/Immunologic Allergic/Immunologic ED: Denies as per HPI, none, lip swelling, mouth swelling, throat swelling, tongue swelling or hives EXAM Physical Exam Const Vital Signs: 08/26/20 19:18 08/26/20 19:26 Temperature 97.8 F Temperature Source Temporal Pulse Rate 96 Respiratory Rate 22 H Respiratory Effort Short of Breath Respiratory Depth Deep Respiratory Pattern Tachypnea Blood Pressure 155/115 H Blood Pressure Mean 128 Pulse Ox 95 Oxygen Delivery Method Room Air Positive well nourished and well developed General Appearance ED: well developed and NAD HEENT Reports TM's clear and moist mucous membranes normocephalic and atraumatic; Negative for trauma or tenderness Tympanic Membrane ED: Yes TM's clear Eyes PERRL and EOMs intact bilaterally General Eye ED: Negative for pale conjunctiva or scleral icterus Neck no lymphadenopathy, supple and no JVD General: Negative for tenderness Chest Wall inspection of chest normal and palpation of chest normal Chest: Negative for tenderness Resp normal respiratory effort and clear to auscultation bilaterally Effort and Inspection: Negative for respiratory distress or pain with movement Auscultation: wheezes; Negative for rhonchi or diminished lung sounds Cardio regular rate, regular rhythm, S1 normal heart sound, S2 normal heart sound and no murmurs Peripheral Pulses: pulses 2+ throughout GI normal to inspection, nondistended, normoactive bowel sounds, soft to palpation, non-tender, non-distended and no masses Back/Spine no CVA tenderness and no thoracic nor lumbar tenderness Extremity normal to inspection General Extremety ED: Negative for edema General Extremity: Negative for edema Neuro oriented x3, CN's II-XII intact bilaterally, no sensory deficits noted and gait normal Sensorium / Orientation: awake, alert, oriented to person, oriented to place and oriented to time Motor Exam: strength 5/5 throughout and strength abnormal Psych mental status grossly normal Skin no rashes or lesions noted and no wounds MDM MDM MDM Narrative Medical decision making narrative: Patient had an elevated D-dimer therefore CT of the chest was ordered and results will be pending. Patient states that she can no longer wait in the emergency department as she does not have a pmp certified project manager for her children and needs to go home. Patient understands I cannot rule out an PE at this time. I suspect patient likely has a viral asthmatic bronchitis and her PCR Covid test will be pending. Patient did have some changes on her EKG compared to June 2020 with some Q waves noted in the lateral leads as well as flipped T waves which were not there at that time. This point I do not feel she is having acute coronary syndrome. Follow-up primary care physician in 3 to 5 days. Patient advised to discontinue smoking. I did give patient the option to be admitted for stress testing given the abnormal EKG changes. Patient states that she has nobody to watch her kids and cannot be admitted. She understands my concerns. She understands that especially may have had an acute coronary syndrome at some point between now in June. He understands return if chest pain, exertional dyspnea, or condition should worsen anyway. Lab Data Attestation: I reviewed the patient's lab results. Labs: Laboratory Results - last 24 hr 08/26/20 08/26/20 08/26/20 19:50 19:50 19:50 WBC 8.7 RBC 4.60 Hgb 14.4 Hct 43.9 MCV 95.4 MCH 31.3 MCHC 32.8 RDW Std Deviation 45.7 H RDW Coeff of Seven 13.1 Plt Count 239 MPV 11.8 Immature Gran % (Auto) 0.300 Neut % (Auto) 56.2 Lymph % (Auto) 33.3 [place] % (Auto) 8.2 Eos % (Auto) 1.7 Baso % (Auto) 0.3 Absolute Neuts (auto) 4.9 Absolute Lymphs (auto) 2.91 Nucleated RBC % 0 D-Dimer Quant (PE/DVT) 0.55 H* Sodium 140 Potassium 3.8 Chloride 106 Carbon Dioxide 30.0 Anion Gap 4 L BUN 13 Creatinine 0.90 Estim Creat Clear Calc 84.03 Est GFR (MDRD) Af Amer 91 Est GFR (MDRD) Non-Af 75 BUN/Creatinine Ratio 14.4 Glucose 120 H Calcium 8.5 Radiography Chest X-Ray - ED: 1 View Diagnostic Testing: Radiology Impression Chest X-Ray 08/26/20 20:10 IMPRESSION: No acute cardiopulmonary process identified. Electronically Signed: Ar Goss MD at 21:12 EDT Tel , Service support , 1 view chest x-ray obtained interpreted by myself as no acute disease process. Radiology in agreement. EKG Initial EKG: Comments: Regular rate of 95 bpm with questionable old lateral infarct noted. Prior EKG tracings: available for review Prior: Changed Discharge Plan Triage Chief Complaint: Shortness of Breath ED Provider: Soha Sunshine Dx/Rx/DC Orders Clinical Impression: Acute asthmatic bronchitis, Abnormal ECG Instructions: ED Bronchitis with Wheezing (Adult) Prescriptions: No Action bupropion HCl 150 MG tablet sustained-release 12 hr 150 mg PO BID RF: 0 ascorbic acid (vitamin C) 500 MG tablet,chewable 500 mg PO DAILY RF: 0 omeprazole 20 MG capsule 20 mg PO DAILY RF: 0 Primary Care Provider: Care Physician,No Primary Referrals: Toyin Hannon MD [STAFF PHYSICIAN] - 3-5 Days Care Physician,No Primary [Primary Care Provider] - Disposition Disposition: Home, self care
[2020-08-26] MEDS: MethylPREDNISolone 125 MG/2 ML Vial IV (19:47)
[2020-08-26] MEDS: 0.9% Normal Saline 1,000 ML 150 ML IV (19:48)
[2020-08-26 20:04] LABS: Absolute Lymphocyte Count 2.91 X10^3/uL (0.83-4.51); Absolute Neutrophil Count 4.9 X10^3/uL (2.0-7.7); Basophil# 0.03 X10^3/uL; Basophil% 0.3 % (0-1); Eosinophil# 0.15 X10^3/uL; Eosinophils% 1.7 % (0-5); Hematocrit 43.9 % (37-47); Hemoglobin 14.4 g/dL (12.0-15.0); Lymphocyte # 2.91 X10^3/ul (0.83-4.51); Lymphocyte % 33.3 % (19-41); Mean Corp Hgb Conc 32.8 g/dL (32-36); Mean Corpuscular Hgb 31.3 pg (27.0-32.0); Mean Corpuscular Volume 95.4 fL (81-99); Mean Platelet Vol. 11.8 fl (6.2-12.0); Monocyte# 0.72 X10^3/uL; Monocyte% 8.2 % (0-10); NRBC Flagged by Analyzer 0 % (0-5); Neutrophil # 4.89 X10^3/uL (2.7-7.7); Neutrophil % 56.2 % (47-70); Platelet Count 239 K/mm3 (150-450); RBC Distribution Width CV 13.1 % (11.6-14.6); RBC Distribution Width SD 45.7 fl (35.1-43.9); White Blood Count 8.7 K/mm3 (4.4-11.0)
--- NOTE | 2020-08-26 20:10 | RAD_ITS ---
STUDY: X-RAY CHEST REASON FOR EXAM: Female, 34 years old. Dyspnea TECHNIQUE: Single frontal view of the chest. COMPARISON: 06/03/20. FINDINGS: Cardiac silhouette unremarkable. Pulmonary vascularity unremarkable. Aorta unremarkable. No focal airspace opacities. No pleural effusions. Upper abdomen unremarkable. Osseous structures intact. No pneumothorax. RAD/Chest 1 View (Portable) IMPRESSION: No acute cardiopulmonary process identified. Electronically Signed: Ar Goss MD at 21:12 EDT Tel , Service support ,
[2020-08-26 20:20] LABS: D-Dimer Quantitative (DVT/PE) 0.55 FEU/ug/m (0.27-0.49)
[2020-08-26 20:26] LABS: Anion Gap 4 (5-15); BUN 13 mg/dL (7-18); BUN/Creat Ratio 14.4 RATIO (10-20); Calcium,Total 8.5 mg/dL (8.5-10.1); Chloride 106 mmol/L (98-107); EST Glomerular Filtration Rate 75 mL/min (>60); Est Glom Filt Rate - Afr Amer 91 mL/min (>60); Estimated Creatinine Clearance 84.03 ml/min; Glucose 120 mg/dL (74-106); Potassium 3.8 mmol/L (3.5-5.1); Sodium Level 140 mmol/L (136-145)
--- NOTE | 2020-08-26 21:38 | CT_ITS ---
STUDY: CTA CHEST REASON FOR EXAM: Female, 34 years old. Dyspnea, elevated d-dimer RADIATION DOSAGE (If Supplied By Facility): CTDIvol = ( 13.85 ) mGy, DLP = ( 532.73 ) mGycm TECHNIQUE: The examination was performed with the intravenous administration of 100mL Isovue-370. Post-processing of the angiographic images was performed, with multiplanar reformation and 3D reconstruction. Individualized dose optimization techniques were used for this CT. COMPARISON: June 07, 2020. FINDINGS: Normal enhancement of the main pulmonary artery and right and left pulmonary arteries. There is limited enhancement of the bilateral peripheral pulmonary arteries. There is no demonstrated pulmonary embolism. Normal thoracic aorta and visualized great vessels. There is no demonstrated aortic dissection. Normal heart and pericardium. Normal mediastinum. Normal hilar regions. Normal visualized trachea and bronchi. The lungs are well expanded. Normal pulmonary parenchyma. Normal pleura. Normal chest wall structures. There are degenerative changes of thoracic spine. Normal visualized upper abdomen. CT/CTA Chest W/WO Contrast IMPRESSION: CTA chest examination, without a demonstrated pulmonary embolism or arterial dissection. No focal infiltrate or edema. Electronically Signed: Ricardo Major MD at 22:56 EDT , Service support ,
== END 2020-08-26 22:15 | disposition home or self-care (01) ==
PROVIDERS: Emergency Provider Emergency Medicine
DX: J45.909 Unspecified asthma, uncomplicated (principal); Z20.822 Contact with and (suspected) exposure to COVID-19; R94.31 Abnormal electrocardiogram [ECG] [EKG]; J02.9 Acute pharyngitis, unspecified; F32.9 Major depressive disorder, single episode, unspecified; F17.210 Nicotine dependence, cigarettes, uncomplicated; Z79.899 Other long term (current) drug therapy
CPT/HCPCS: 71045; 71275; 80048; 84484; 85025; 85379; 87040; 87635; 93005; 96361; 96374; 99284; J7030; Q9967; U0005; A4216; U0003

== ENCOUNTER 2021-04-02 06:53 | Emergency (ER) | payer MEDICAID, SELFPAY ==
[2021-04-02 06:54] VITALS: BP 141/70; PULSE 101; RESP 20; TEMP 37.4; O2SAT 87; BMI 55.4
[2021-04-02 06:58] VITALS: BP 141/70; PULSE 89; RESP 20; TEMP 37.4; O2SAT 93
--- NOTE | 2021-04-02 07:10 | RAD_ITS ---
STUDY: X-RAY CHEST REASON FOR EXAM: Female, 35 years old. hypoxia TECHNIQUE: AP COMPARISON: 08/26/2020 FINDINGS: EKG leads project over the chest. The lungs are clear and expanded. There is no demonstrated pleural abnormality. Normal size heart. Normal mediastinum and gay. Normal visualized pulmonary arteries. Normal visualized aortic arch and descending thoracic aorta. Normal visualized thoracic spine. Normal visualized ribs, clavicles, and shoulders. There is no demonstrated abnormality of the visualized soft tissue structures of the upper abdomen. RAD/Chest 1 View (Portable) IMPRESSION: Nonacute portable x-ray examination of the chest. Electronically Signed: Jacob Collins MD ([place]) at 8:29 EST , Service support ,
--- NOTE | 2021-04-02 07:12 | EDS_ITS ---
HPI History of Present Illness Chief Complaint: General Illness Detail of Chief Complaint: Fever, headache, body aches Informant: patient Narrative Narrative: Patient presents to the emergency department complaining of not feeling well since yesterday. Patient complains of headache and body aches and fever. She took a home Covid test that was positive today. She denies sick contacts. She is not been vaccinated. She denies loss of taste or smell. Patient also has had some diarrhea. Prior similar symptoms: No PFSH PFSH Medical History (Updated 04/02/21 @ 09:[address] Soha Sunshine, DO) Depression Lab test negative for COVID-19 virus Home Medications ascorbic acid (vitamin C) 500 mg PO DAILY 07/20/20 [History Last Taken Unknown] omeprazole 20 mg PO DAILY 07/20/20 [History Last Taken Unknown] cholecalciferol (vitamin D3) 25 mcg PO DAILY 04/02/21 [History Last Taken Unknown] Allergy/AdvReac Type Severity Reaction Status Date / Time sulfamethoxazole Allergy Hives Verified 04/02/21 07:00 [From Bactrim] trimethoprim [From Bactrim] Allergy Hives Verified 04/02/21 07:00 doxycycline AdvReac Itching Verified 04/02/21 07:00 Social History Smoking Status: Current every day smoker tobacco type: cigarettes ROS ROS ED Constitutional Constitutional ED: Reports systems reviewed and no addt'l complaints, except as documented, chills and fever(s); Denies body ache(s) or change in weight Eyes Eyes: Denies acute decrease in peripheral vision, change in vision, double vision or loss of vision ENT ENT ED: Reports none; Denies ear pain, lip swelling, loss taste/smell, neck pain, otalgia or sore throat Cardiovascular Cardiovascular: Reports none; Denies abdominal pain, chest pain with activity, leg edema, lightheadedness, palpitations, rapid heart rate or syncope Respiratory/Chest Respiratory/Chest: Reports none, cough and dyspnea; Denies change in mental status, dry cough, hemoptysis, shortness of breath at rest or shortness of breath with exertion Gastrointestinal Gastrointestinal: Reports none; Denies abdominal pain, change in stool character, diarrhea, hematemesis, hematochezia, melena, rectal bleeding or vomiting Genitourinary Genitourinary ED: Reports none; Denies abdominal discomfort, anuria, dysuria, genital pain or polyuria Musculoskeletal Musculoskeletal: Reports none and myalgias; Denies arthralgias, back pain, difficulty walking, extremity pain or muscle weakness Integumentary Reports none; Denies abscess or rash Neurologic Neurologic: Reports none and headache(s); Denies abnormal gait, confusion, focal weakness, frequent falls, loss of vision, numbness, paresthesias, radicular pain, vertigo or weakness Psychiatric Psychiatric: Reports systems reviewed and no addt'l complaints, except as documented and none; Denies behavioral changes, confusion, difficulty concentrating, hallucinations, suicidal ideation, tactile hallucinations or visual hallucinations Endocrine Endocrinology: Denies none, cold intolerance, excessive sweating, fatigue or heat intolerance Hematologic/Lymphatic Hematologic/Lymphatic: Reports none; Denies anemia, easy bleeding or easy bruising Allergic/Immunologic Allergic/Immunologic ED: Denies as per HPI, none, lip swelling, mouth swelling, throat swelling, tongue swelling or hives EXAM Physical Exam Const Vital Signs: 04/02/21 06:54 04/02/21 06:58 04/02/21 07:49 Temperature 99.4 F H 99.4 F H Temperature Source Oral Oral Pulse Rate 101 H 89 Respiratory Rate 20 H 20 H Respiratory Effort Short of Breath Respiratory Pattern Tachypnea Blood Pressure 141/70 H 141/70 H Blood Pressure Mean 93 93 Pulse Ox 87 93 98 Oxygen Delivery Method Room Air Nasal Cannula Room Air Oxygen Flow Rate (L/min) 2 04/02/21 08:36 04/02/21 09:33 Temperature 98.5 F 98.5 F Temperature Source Oral Oral Pulse Rate 83 73 Respiratory Rate 16 16 Respiratory Effort Respiratory Pattern Blood Pressure 148/93 H 128/79 H Blood Pressure Mean 111 95 Pulse Ox 99 98 Oxygen Delivery Method Room Air Room Air Oxygen Flow Rate (L/min) Positive well nourished and well developed General Appearance ED: well developed and NAD HEENT Reports TM's clear and moist mucous membranes normocephalic and atraumatic; Negative for trauma or tenderness Tympanic Membrane ED: Yes TM's clear Eyes PERRL and EOMs intact bilaterally General Eye ED: Negative for pale conjunctiva or scleral icterus Neck no lymphadenopathy, supple and no JVD General: Negative for tenderness Chest Wall inspection of chest normal and palpation of chest normal Chest: Negative for tenderness Resp normal respiratory effort and clear to auscultation bilaterally Effort and Inspection: Negative for respiratory distress or pain with movement Auscultation: Negative for rhonchi, wheezes or diminished lung sounds Cardio regular rate, regular rhythm, S1 normal heart sound, S2 normal heart sound and no murmurs Peripheral Pulses: pulses 2+ throughout GI normal to inspection, nondistended, normoactive bowel sounds, soft to palpation, non-tender, non-distended and no masses Back/Spine no CVA tenderness and no thoracic nor lumbar tenderness Extremity normal to inspection General Extremety ED: Negative for edema General Extremity: Negative for edema Neuro oriented x3, CN's II-XII intact bilaterally, no sensory deficits noted and gait normal Sensorium / Orientation: awake, alert, oriented to person, oriented to place and oriented to time Motor Exam: strength 5/5 throughout and strength abnormal Psych mental status grossly normal Skin no rashes or lesions noted and no wounds MDM MDM MDM Narrative Medical decision making narrative: IV line established on arrival. It was noted that patient had very long fingernails with dark paint on them and we felt pulse ox was not picking up appropriately. When we placed the pulse oximeter on patient's forehead her O2 saturations were normal even with ambulation. Patient's work-up was unremarkable. CTA was negative for PE. Patient was positive for COVID-19. I feel she can be safely discharged to home. She is interested in monoclonal antibody infusion. I will make referral for her for antibody infusion. Patient advised to return if increasing shortness of breath or condition should worsen anyway. Lab Data Attestation: I reviewed the patient's lab results. Labs: Laboratory Results - last 24 hr 04/02/21 04/02/21 04/02/21 07:35 07:35 07:35 WBC 4.2 L RBC 4.33 Hgb 13.7 Hct 41.0 MCV 94.7 MCH 31.6 MCHC 33.4 RDW Std Deviation 44.7 H RDW Coeff of Seven 13.0 Plt Count 192 MPV 12.0 Immature Gran % (Auto) 0.500 Neut % (Auto) 63.5 Lymph % (Auto) 17.3 L [place] % (Auto) 17.5 H Eos % (Auto) 0.7 Baso % (Auto) 0.5 Absolute Neuts (auto) 2.7 Absolute Lymphs (auto) 0.72 L Nucleated RBC % 0 D-Dimer Quant (PE/DVT) 1.09 H* Sodium 137 Potassium 3.6 Chloride 106 Carbon Dioxide 26.0 Anion Gap 5 BUN 8 Creatinine 0.86 Estim Creat Clear Calc 87.10 Est GFR (MDRD) Af Amer 95 Est GFR (MDRD) Non-Af 78 BUN/Creatinine Ratio 9.3 L Glucose 138 H Lactic Acid Calcium 8.1 L 04/02/21 07:35 WBC RBC Hgb Hct MCV MCH MCHC RDW Std Deviation RDW Coeff of Seven Plt Count MPV Immature Gran % (Auto) Neut % (Auto) Lymph % (Auto) [place] % (Auto) Eos % (Auto) Baso % (Auto) Absolute Neuts (auto) Absolute Lymphs (auto) Nucleated RBC % D-Dimer Quant (PE/DVT) Sodium Potassium Chloride Carbon Dioxide Anion Gap BUN Creatinine Estim Creat Clear Calc Est GFR (MDRD) Af Amer Est GFR (MDRD) Non-Af BUN/Creatinine Ratio Glucose Lactic Acid 0.6 Calcium Radiography Diagnostic Testing: Clinical Impression(s) from Imaging Studies Chest X-Ray 04/02/21 07:10 IMPRESSION: Nonacute portable x-ray examination of the chest. Electronically Signed: Jacob Collins MD ([place]) at 8:29 EST , Service support , Chest CTA 04/02/21 09:01 IMPRESSION: 1. No central or segmental pulmonary embolism. Electronically Signed: Jacob Collins MD ([place]) at 9:30 EST , Service support , 1 view chest x-ray obtained interpreted by myself as no acute disease process. Radiology in agreement. Discharge Plan Triage Chief Complaint: General Illness ED Provider: Soha Sunshine Dx/Rx/DC Orders Clinical Impression: COVID-19 Instructions: ED - COVID Monoclonal AB Infusion ..., Caring for Someone Who Has COVID-19 Prescriptions: No Action ascorbic acid (vitamin C) 500 MG tablet,chewable 500 mg PO DAILY RF: 0 omeprazole 20 MG capsule 20 mg PO DAILY RF: 0 cholecalciferol (vitamin D3) 25 mcg (1,000 unit) Capsule 25 mcg PO DAILY RF: 0 Other Ambulatory Orders: COVID Outpatient Monoclonal Antibody Referral (Routine) Timeframe: 1 Day Facility: [facility] - Location: [facility] Ordered By: Dr. Soha Sunshine Primary Care Provider: Care Physician,No Primary Referrals: Toyin Hannon MD [STAFF PHYSICIAN] - 5-7 Days Care Physician,No Primary [Primary Care Provider] - Disposition Disposition: Home, Self Care
[2021-04-02] MEDS: Ketorolac 30 MG/ML Syringe IV (07:38)
[2021-04-02] MEDS: 0.9% Normal Saline 1,000 ML 150 ML IV (07:38)
[2021-04-02] MEDS: dexAMETHasone 4 MG Tablet 6 MG PO (07:48)
[2021-04-02 07:49] VITALS: O2SAT 98
[2021-04-02 08:03] LABS: Absolute Lymphocyte Count 0.72 X10^3/uL (0.83-4.51); Absolute Neutrophil Count 2.7 X10^3/uL (2.0-7.7); Basophil# 0.02 X10^3/uL; Basophil% 0.5 % (0-1); Eosinophil# 0.03 X10^3/uL; Eosinophils% 0.7 % (0-5); Hemoglobin 13.7 g/dL (12.0-15.0); Lymphocyte # 0.72 X10^3/ul (0.83-4.51); Lymphocyte % 17.3 % (19-41); Mean Corp Hgb Conc 33.4 g/dL (32-36); Mean Corpuscular Hgb 31.6 pg (27.0-32.0); Mean Corpuscular Volume 94.7 fL (81-99); Monocyte# 0.73 X10^3/uL; Monocyte% 17.5 % (0-10); NRBC Flagged by Analyzer 0 % (0-5); Neutrophil # 2.65 X10^3/uL (2.7-7.7); Neutrophil % 63.5 % (47-70); Platelet Count 192 K/mm3 (150-450); RBC Distribution Width SD 44.7 fl (35.1-43.9); Red Blood Count 4.33 M/mm3 (4.2-5.4); White Blood Count 4.2 K/mm3 (4.4-11.0)
[2021-04-02 08:16] LABS: Anion Gap 5 (5-15); BUN 8 mg/dL (7-18); BUN/Creat Ratio 9.3 RATIO (10-20); Calcium,Total 8.1 mg/dL (8.5-10.1); Chloride 106 mmol/L (98-107); Creatinine, Serum 0.86 mg/dL (0.55-1.02); EST Glomerular Filtration Rate 78 mL/min (>60); Est Glom Filt Rate - Afr Amer 95 mL/min (>60); Glucose 138 mg/dL (74-106); Potassium 3.6 mmol/L (3.5-5.1); Sodium Level 137 mmol/L (136-145)
[2021-04-02 08:18] LABS: Lactic Acid 0.6 mmol/L (0.4-1.9)
[2021-04-02 08:36] VITALS: BP 148/93; PULSE 83; RESP 16; TEMP 36.9; O2SAT 99
[2021-04-02 08:50] LABS: D-Dimer Quantitative (DVT/PE) 1.09 FEU/ug/m (0.27-0.49)
--- NOTE | 2021-04-02 09:01 | CT_ITS ---
STUDY: CTA CHEST REASON FOR EXAM: Female, 35 years old. dyspnea, covid-19 RADIATION DOSAGE (If Supplied By Facility): CTDIvol = ( 16.22 ) mGy, DLP = ( 465.35 ) mGycm TECHNIQUE: The examination was performed with the intravenous administration of IV 100mL Isovue-370. Post-processing of the angiographic images was performed, with multiplanar reformation and 3D reconstruction. Individualized dose optimization techniques were used for this CT. COMPARISON: 08/26/2020 FINDINGS: Normal enhancement of the main pulmonary artery and right and left pulmonary arteries. Normal enhancement of the bilateral peripheral pulmonary arteries. There is no demonstrated pulmonary embolism. Normal thoracic aorta and visualized great vessels. There is no demonstrated aortic dissection. Normal heart and pericardium. Normal mediastinum. Normal hilar regions. Normal visualized trachea and bronchi. The lungs are well expanded. 5 mm noncalcified nodule in the upper portion of the left lower lobe on image 155 series 2, stable. Normal pleura. Normal chest wall structures. Normal osseous structures. Normal visualized upper abdomen. CT/CTA Chest W/WO Contrast IMPRESSION: 1. No central or segmental pulmonary embolism. Electronically Signed: Jacob Collins MD ([place]) at 9:30 EST , Service support ,
[2021-04-02 09:33] VITALS: BP 128/79; PULSE 73; RESP 16; TEMP 36.9; O2SAT 98
[2021-04-02 10:00] VITALS: BP 138/74; PULSE 85; RESP 16; O2SAT 99
== END 2021-04-02 10:00 | disposition home or self-care (01) ==
PROVIDERS: Emergency Provider Emergency Medicine
DX: U07.1 COVID-19 (principal); R19.7 Diarrhea, unspecified; F32.A Depression, unspecified; F17.210 Nicotine dependence, cigarettes, uncomplicated
CPT/HCPCS: 36415; 71045; 71275; 80048; 83605; 85025; 85379; 87040; 87426; 96361; 96374; 99285; J7030; Q9967

== ENCOUNTER 2021-04-26 15:33 | Emergency (ER) | payer MEDICAID, SELFPAY ==
[2021-04-26 15:34] VITALS: BP 135/85; PULSE 106; RESP 16; TEMP 36.3; O2SAT 99; BMI 49.0
[2021-04-26 16:33] VITALS: BP 131/78; PULSE 98; RESP 18; O2SAT 97
--- NOTE | 2021-04-26 16:54 | EKG12_ITS ---
Test Reason : CP Blood Pressure : / mmHG Vent. Rate : 101 BPM Atrial Rate : 101 BPM P-R Int : 132 ms QRS Dur : 086 ms QT Int : 356 ms P-R-T Axes : 056 070 056 degrees QTc Int : 461 ms Sinus tachycardia Otherwise normal ECG Confirmed by JODY RODRIGUEZ, JOI ([id number]), graphic editor ELSIE CASTILLO ([id number]) on 04/28/2021 9:11:39 AM Referred By: SHREYAS Confirmed By:JOI VERA MD
--- NOTE | 2021-04-26 16:55 | CT_ITS ---
INDICATION: dyspnea, CP, recent covid EXAMINATION: CTA Chest WO/W Contrast Injection TECHNIQUE: Helically acquired images were obtained of the chest following administration of IV contrast. A radiation dose optimization technique was used for this scan. 3D postprocessing images including MIPS were reviewed. IV Contrast dosage and agent: IV 100mL Isovue-370 COMPARISON: 04/02/2021. FINDINGS: Lungs: Stable 5 mm noncalcified nodule in the upper portion of the left lower lobe. Scattered subsegmental atelectasis. Mediastinum: The cardiomediastinal silhouette is not enlarged. No mediastinal, hilar or axillary adenopathy. The thoracic aorta is unremarkable. No obvious filling defect seen within the visualized pulmonary arteries. Pleura: Unremarkable Bones/Soft tissues: Mild scattered degenerative changes of the visualized spine. Upper abdomen: No visualized abnormalities in the upper abdomen. CT/CTA Chest W/WO Contrast IMPRESSION: No acute abnormalities in the chest. Specifically, no evidence of acute pulmonary emboli to the segmental level. Electronically Signed: Kishor Christy MD at 18:04 EST Tel , Service support ,
--- NOTE | 2021-04-26 16:56 | EX.ED.DYSGE1 ---
HPI History of Present Illness Chief Complaint: Chest Pain Informant: patient Onset/Context/Timing Onset: Days (3 days) Context: Gradual Onset Timing: Waxes and wanes Current Severity: Mild Maximum Severity: Moderate Worsened by: Cough, deep breath Narrative Narrative: Patient presents secondary to chest tightness with cough and sore throat. Patient had Covid diagnosed on April 02. She states had very mild cough at that time but had fevers and headaches. Those symptoms resolved. 4 days ago she developed cough and congestion. She developed left-sided chest pain 3 days ago. Pain is worse with deep breath or movement. She states she gets exhausted with any exertion. PFSH PFS Medical History Depression GERD (gastroesophageal reflux disease) Smoker Home Medications ascorbic acid (vitamin C) 500 mg PO DAILY 07/20/20 [History Last Taken Unknown] omeprazole 20 mg PO DAILY 07/20/20 [History Last Taken Unknown] cholecalciferol (vitamin D3) 25 mcg PO DAILY 04/02/21 [History Last Taken Unknown] albuterol sulfate [Ventolin HFA] 2 puff INHALATION Q4H PRN PRN #1 inhaler 04/26/21 [Rx Last Taken Unknown] azithromycin 250 mg PO DAILY #4 tab 04/26/21 [Rx Last Taken Unknown] prednisone 40 mg PO DAILY #8 tab 04/26/21 [Rx Last Taken Unknown] Allergy/AdvReac Type Severity Reaction Status Date / Time sulfamethoxazole Allergy Hives Verified 04/26/21 15:37 [From Bactrim] trimethoprim [From Bactrim] Allergy Hives Verified 04/26/21 15:37 doxycycline AdvReac Itching Verified 04/26/21 15:37 Surgical History History of hysterectomy Social History Smoking Status: Current every day smoker tobacco type: cigarettes ROS ROS ED Constitutional Constitutional ED: Denies chills or fever(s) Eyes Eyes: Denies blurry vision ENT ENT ED: Denies ear pain or rhinorrhea Cardiovascular Cardiovascular: Reports chest pain; Denies palpitations or racing heartbeat Respiratory/Chest Respiratory/Chest: Reports cough and dyspnea; Denies sputum Gastrointestinal Gastrointestinal: Denies abdominal pain, diarrhea, nausea or vomiting Genitourinary Genitourinary ED: Denies dysuria Musculoskeletal Musculoskeletal: Reports back pain Integumentary Denies rash Neurologic Neurologic: Reports weakness; Denies headache(s) Psychiatric Psychiatric: Denies anxiety or depression Allergic/Immunologic Allergic/Immunologic ED: Denies urticaria EXAM Physical Exam Const Vital Signs: 04/26/21 15:34 04/26/21 16:33 04/26/21 17:14 Temperature 97.4 F L Temperature Source Temporal Pulse Rate 106 H 98 80 Respiratory Rate 16 18 19 H Respiratory Effort Normal Respiratory Pattern Tachypnea Blood Pressure 135/85 H 131/78 H Blood Pressure Mean 101 95 Pulse Ox 99 97 Oxygen Delivery Method Room Air Room Air 04/26/21 18:04 Temperature Temperature Source Pulse Rate 90 Respiratory Rate 20 H Respiratory Effort Respiratory Pattern Blood Pressure 170/95 H Blood Pressure Mean 120 Pulse Ox Oxygen Delivery Method Positive well nourished and well developed General Appearance ED: well developed HEENT Reports moist mucous membranes Eyes PERRL and EOMs intact bilaterally Neck supple Chest Wall inspection of chest normal and palpation of chest normal Resp Resp Narrative: Expiratory wheezes throughout. Cardio regular rate and regular rhythm GI non-tender Auscultation: hypoactive bowel sounds Palpation: soft Extremity normal to inspection Neuro oriented x3 Sensorium / Orientation: alert Skin no rashes or lesions noted MDM MDM MDM Narrative Medical decision making narrative: Patient given aerosols and IV Solu-Medrol. Lab work, EKG, CTA chest obtained. Lab Data Attestation: I reviewed the patient's lab results. Labs: Laboratory Results - last 24 hr 04/26/21 04/26/21 17:00 17:00 WBC 9.9 RBC 4.55 Hgb 14.5 Hct 43.0 MCV 94.5 MCH 31.9 MCHC 33.7 RDW Std Deviation 45.4 H RDW Coeff of Seven 13.1 Plt Count 239 MPV 11.5 Immature Gran % (Auto) 0.300 Neut % (Auto) 61.0 Lymph % (Auto) 30.0 [place] % (Auto) 6.1 Eos % (Auto) 2.1 Baso % (Auto) 0.5 Absolute Neuts (auto) 6.0 Absolute Lymphs (auto) 2.96 Nucleated RBC % 0 Sodium 138 Potassium 4.2 Chloride 105 Carbon Dioxide 30.0 Anion Gap 3 L BUN 12 Creatinine 0.87 Estim Creat Clear Calc 86.10 Est GFR (MDRD) Af Amer 94 Est GFR (MDRD) Non-Af 78 BUN/Creatinine Ratio 13.8 Glucose 148 H Calcium 8.8 Troponin I High Sens 5 Radiography Diagnostic Testing: Clinical Impression(s) from Imaging Studies Chest CTA 04/26/21 16:55 IMPRESSION: No acute abnormalities in the chest. Specifically, no evidence of acute pulmonary emboli to the segmental level. Electronically Signed: Kishor Christy MD at 18:04 EST Tel , Service support , EKG Initial EKG: Attestation: I personally reviewed and interpreted this EKG as follows: Interpretation: Sinus Tachycardia (Sinus tach at 101. No acute ischemia.) Treatment and Re-Evaluation Comments:: On repeat evaluation patient somewhat improved. Vital signs stable. Patient has no hypoxia. CTA reveals no evidence of infiltrate or PE. Lab work unremarkable including normal troponin. EKG reveals no sign of ischemia. Patient has had 25-year history of smoking. I will treat her with albuterol inhaler, steroids, antibiotics. Return instructions provided. Discharge Plan Triage Chief Complaint: Chest Pain ED Provider: Kristyn Encarnacion Dx/Rx/DC Orders Clinical Impression: Bronchitis Instructions: ED Bronchitis with Wheezing (Adult) Prescriptions: New azithromycin [azithromycin] 250 MG tablet 250 mg PO DAILY Qty: 4 RF: 0 albuterol sulfate [Ventolin HFA] 1 INHALER inhaler 2 puff inhalation Q4H PRN PRN (Reason: Wheezing) Qty: 1 RF: 0 prednisone 20 mg tablet 40 mg PO DAILY Qty: 8 RF: 0 No Action ascorbic acid (vitamin C) 500 MG tablet,chewable 500 mg PO DAILY RF: 0 omeprazole 20 MG capsule 20 mg PO DAILY RF: 0 cholecalciferol (vitamin D3) 25 mcg (1,000 unit) Capsule 25 mcg PO DAILY RF: 0 Primary Care Provider: Care Physician,No Primary Referrals: Idalmis Biswas MD [STAFF PHYSICIAN] - 1-2 Weeks Care Physician,No Primary [Primary Care Provider] - Disposition Disposition: Home, Self Care
[2021-04-26 17:10] LABS: Absolute Lymphocyte Count 2.96 X10^3/uL (0.83-4.51); Basophil# 0.05 X10^3/uL; Basophil% 0.5 % (0-1); Eosinophil# 0.21 X10^3/uL; Eosinophils% 2.1 % (0-5); Hemoglobin 14.5 g/dL (12.0-15.0); Lymphocyte # 2.96 X10^3/ul (0.83-4.51); Mean Corp Hgb Conc 33.7 g/dL (32-36); Mean Corpuscular Hgb 31.9 pg (27.0-32.0); Mean Corpuscular Volume 94.5 fL (81-99); Mean Platelet Vol. 11.5 fl (6.2-12.0); Monocyte% 6.1 % (0-10); NRBC Flagged by Analyzer 0 % (0-5); Neutrophil # 6.01 X10^3/uL (2.7-7.7); Platelet Count 239 K/mm3 (150-450); RBC Distribution Width CV 13.1 % (11.6-14.6); RBC Distribution Width SD 45.4 fl (35.1-43.9); Red Blood Count 4.55 M/mm3 (4.2-5.4); White Blood Count 9.9 K/mm3 (4.4-11.0)
[2021-04-26] MEDS: Albuterol 2.5 MG/3 ML VIAL.NEB. INHALATION ×2 (17:11)
[2021-04-26] MEDS: Ipratropium/Albuterol Sulfate 3 ML AMPUL.NEB INHALATION (17:11)
[2021-04-26] MEDS: MethylPREDNISolone 125 MG/2 ML Vial IV (17:13)
[2021-04-26 17:14] VITALS: PULSE 80; RESP 19
[2021-04-26 17:35] LABS: Anion Gap 3 (5-15); BUN 12 mg/dL (7-18); BUN/Creat Ratio 13.8 RATIO (10-20); Calcium,Total 8.8 mg/dL (8.5-10.1); Chloride 105 mmol/L (98-107); Creatinine, Serum 0.87 mg/dL (0.55-1.02); EST Glomerular Filtration Rate 78 mL/min (>60); Est Glom Filt Rate - Afr Amer 94 mL/min (>60); Glucose 148 mg/dL (74-106); Potassium 4.2 mmol/L (3.5-5.1); Sodium Level 138 mmol/L (136-145); Troponin-I HS 5 pg/mL (3.0-54.0)
[2021-04-26 18:04] VITALS: BP 170/95; PULSE 90; RESP 20
[2021-04-26] MEDS: Azithromycin 250 MG Tablet 500 MG PO (19:13)
[2021-04-26 19:14] VITALS: BP 152/107; PULSE 88; RESP 18; O2SAT 96
== END 2021-04-26 19:18 | disposition home or self-care (01) ==
PROVIDERS: Emergency Provider Emergency Medicine; Visit Provider Emergency Medicine
DX: J40 Bronchitis, not specified as acute or chronic (principal); F17.210 Nicotine dependence, cigarettes, uncomplicated; K21.9 Gastro-esophageal reflux disease without esophagitis; Z79.899 Other long term (current) drug therapy
CPT/HCPCS: 71275; 80048; 84484; 85025; 93005; 94640; 96374; 99284; Q9967; A4216

== ENCOUNTER 2021-12-05 19:45 | Emergency (ER) | payer MEDICAID, SELFPAY ==
[2021-12-05 19:46] VITALS: BP 188/118; PULSE 90; RESP 17; TEMP 36.2; O2SAT 95; BMI 47.7
--- NOTE | 2021-12-05 20:14 | ED.RN ---
PT WITH AUDIBLE WHEEZES AT THIS TIME. PT O2 SATS 91% ON ROOM AIR AND C/O DIFFICULTY BREATHING. 2L NC APPLIED AT THIS TIME FOR THE EASE OF BREATHING.
[2021-12-05 20:18] VITALS: O2SAT 91
--- NOTE | 2021-12-05 20:18 | EKG12_ITS ---
Test Reason : Blood Pressure : / mmHG Vent. Rate : 090 BPM Atrial Rate : 090 BPM P-R Int : 140 ms QRS Dur : 092 ms QT Int : 374 ms P-R-T Axes : 073 077 069 degrees QTc Int : 457 ms Normal sinus rhythm Normal ECG Confirmed by HOMERO RODRIGUEZ, INESSA ([id number]), medical transcription editor ELSIE CASTILLO ([id number]) on 12/07/2021 9:20:51 AM Referred By: Confirmed By:JAMEL VALENTIN MD
--- NOTE | 2021-12-05 20:20 | EX.ED.DYSGE1 ---
HPI History of Present Illness Chief Complaint: General Illness Informant: patient Onset/Context/Timing Onset: Days (2 days) Current Severity: Moderate Maximum Severity: Moderate Narrative Narrative: Patient presents secondary to shortness of breath, fatigue, body aches, cough. She complains of a headache. She has not taken a COVID test. PFSH PFS Medical History Depression GERD (gastroesophageal reflux disease) Smoker Home Medications ascorbic acid (vitamin C) 500 mg chewable tablet 500 mg PO DAILY 07/20/20 [History Last Taken Unknown] omeprazole 20 mg capsule,delayed release 20 mg PO DAILY 07/20/20 [History Last Taken Unknown] cholecalciferol (vitamin D3) 25 mcg (1,000 unit) capsule 25 mcg PO DAILY 04/02/21 [History Last Taken Unknown] albuterol sulfate 90 mcg/actuation aerosol inhaler (Ventolin HFA) 2 puff inhalation Q4H PRN PRN Wheezing ##1 04/26/21 [Rx Last Taken Unknown] azithromycin 250 mg tablet 250 mg PO DAILY #4 tabs 04/26/21 [Rx Last Taken Unknown] prednisone 20 mg tablet 40 mg PO DAILY #8 tabs 04/26/21 [Rx Last Taken Unknown] albuterol sulfate 90 mcg/actuation aerosol inhaler (Ventolin HFA) 2 puff inhalation Q4H PRN PRN Wheezing ##1 12/06/21 [Rx Last Taken Unknown] azithromycin 250 mg tablet (Zithromax) 250 mg PO DAILY 4 days #4 tabs 12/06/21 [Rx Last Taken Unknown] prednisone 10 mg tablet See Taper PO DAILY #63 tabs 12/06/21 [Rx Last Taken Unknown] Allergy/AdvReac Type Severity Reaction Status Date / Time sulfamethoxazole Allergy Hives Verified 12/05/21 19:49 [From Bactrim] trimethoprim [From Bactrim] Allergy Hives Verified 12/05/21 19:49 doxycycline AdvReac Itching Verified 12/05/21 19:49 Surgical History History of hysterectomy Social History Smoking Status: Current every day smoker tobacco type: cigarettes ROS ROS ED Constitutional Constitutional ED: Reports chills; Denies fever(s) or subjective Eyes Eyes: Denies change in vision or discharge from eye(s) ENT ENT ED: Reports rhinorrhea; Denies discharge from eye(s) or sore throat Cardiovascular Cardiovascular: Denies chest pain or palpitations Respiratory/Chest Respiratory/Chest: Reports cough, dyspnea and other Details: Wheezing Gastrointestinal Gastrointestinal: Reports diarrhea; Denies abdominal pain, nausea or vomiting Genitourinary Genitourinary ED: Denies difficulty urinating or dysuria Musculoskeletal Musculoskeletal: Reports myalgias; Denies back pain or extremity pain Integumentary Denies Abrasions or rash Neurologic Neurologic: Reports headache(s) and weakness Psychiatric Psychiatric: Denies anxiety or depression Allergic/Immunologic Allergic/Immunologic ED: Denies lip swelling or urticaria EXAM Physical Exam Const Vital Signs: 12/05/21 19:46 12/05/21 20:18 12/05/21 22:08 Temperature 97.1 F L Temperature Source Temporal Pulse Rate 90 96 Respiratory Rate 17 18 Respiratory Effort Normal Non-Labored Respiratory Depth Normal Respiratory Pattern Normal Blood Pressure 188/118 H 132/102 H Blood Pressure Mean 141 112 Pulse Ox 95 93 Oxygen Delivery Method Room Air Room Air Nasal Cannula Oxygen Flow Rate (L/min) 4 12/05/21 22:25 12/05/21 22:35 12/05/21 22:35 Temperature Temperature Source Pulse Rate 99 98 Respiratory Rate 18 20 H Respiratory Effort Respiratory Depth Respiratory Pattern Normal Blood Pressure 138/102 H Blood Pressure Mean 114 Pulse Ox 87 92 Oxygen Delivery Method Nasal Cannula Nasal Cannula Oxygen Flow Rate (L/min) 4 5 12/05/21 23:03 Temperature Temperature Source Pulse Rate 111 H Respiratory Rate 26 H Respiratory Effort Respiratory Depth Respiratory Pattern Blood Pressure Blood Pressure Mean Pulse Ox 95 Oxygen Delivery Method Nasal Cannula Oxygen Flow Rate (L/min) 3 Positive well nourished and well developed General Appearance ED: well developed HEENT Reports normocephalic and head/scalp atraumatic Eyes PERRL and EOMs intact bilaterally Neck supple Chest Wall inspection of chest normal and palpation of chest normal Resp normal respiratory effort Resp Narrative: Diminished breath sounds bilaterally. Cardio regular rate and regular rhythm GI non-tender Auscultation: hypoactive bowel sounds Palpation: soft Extremity normal to inspection Neuro oriented x3 and no sensory deficits noted Sensorium / Orientation: alert Motor Exam: strength 5/5 throughout Psych Mood & Affect: anxious Skin no rashes or lesions noted MDM MDM MDM Narrative Medical decision making narrative: Patient given aerosols and Solu-Medrol. Lab work obtained along with chest x-ray, EKG, COVID/influenza test. Lab Data Attestation: I reviewed the patient's lab results. Labs: Laboratory Results - last 24 hr 12/05/21 12/05/21 12/05/21 20:36 20:36 20:36 WBC 8.1 RBC 4.68 Hgb 15.5 H Hct 45.0 MCV 96.2 MCH 33.1 H MCHC 34.4 RDW Std Deviation 46.5 H RDW Coeff of Seven 13.1 Plt Count 238 MPV 12.2 H Immature Gran % (Auto) 0.200 Neut % (Auto) 52.7 Lymph % (Auto) 33.9 [place] % (Auto) 9.4 Eos % (Auto) 3.3 Baso % (Auto) 0.5 Absolute Neuts (auto) 4.3 Absolute Lymphs (auto) 2.75 Nucleated RBC % 0 D-Dimer Quant (PE/DVT) 0.60 H* Sodium 141 Potassium 3.7 Chloride 108 H Carbon Dioxide 27.0 Anion Gap 6 BUN 14 Creatinine 1.04 H Estim Creat Clear Calc 73.99 Est GFR (MDRD) Af Amer 76 Est GFR (MDRD) Non-Af 63 BUN/Creatinine Ratio 13.5 Glucose 148 H Calcium 9.1 Troponin I High Sens 6 COVID test: Negative Influenza: Negative Radiography Diagnostic Testing: Clinical Impression(s) from Imaging Studies Chest X-Ray 12/05/21 20:39 IMPRESSION: Normal x-ray examination of the chest. Electronically Signed: Mart Covington MD at 22:03 EDT Reading Location ID and State: [employer] / [place] Tel , Service support , Chest CTA 12/05/21 21:10 IMPRESSION: Normal CTA chest examination, without a demonstrated pulmonary embolism or arterial dissection. Electronically Signed: Mart Covington MD at 22:30 EDT Reading Location ID and State: [employer] / [place] Tel , Service support , EKG Initial EKG: Attestation: I personally reviewed and interpreted this EKG as follows: Interpretation: Sinus Rhythm (Sinus at 90 with no acute ischemia.) Treatment and Re-Evaluation Narrative: Repeat evaluation patient noted slight improvement with her wheezing. CBC unremarkable. Chemistry studies normal. Troponin is negative. D-dimer is elevated at 0.60. Chest x-ray per my interpretation reveals no infiltrate. Radiology interpretation is reviewed. I was notified by nursing staff that her wheezing had increased again and her oxygen levels had started to drop. She was bumped from 4 L up to 6 L. CTA of the chest was obtained and is unremarkable. Additional round of aerosols is given. I asked nursing staff to switch her pulse ox which had been on her finger over thick acrylic nails to her ear. In doing that we were able to get her off of oxygen. She was able to ambulate in the crews with sats of 93 to 94%. She will be discharged with steroids as well as albuterol inhaler and Zithromax. Return instructions are provided. Discharge Plan Triage Chief Complaint: General Illness Other Complaint: Shortness of Breath ED Provider: Kristyn Encarnacion Dx/Rx/DC Orders Clinical Impression: Acute bronchitis with bronchospasm, Viral syndrome Instructions: ED Bronchitis with Wheezing (Adult) Prescriptions: New prednisone 10 mg tablet See Taper PO DAILY Qty: 63 0RF Taper: Prednisone Taper 60 mg WITH BREAKFAST for 3 Days and 0 Hour 50 mg WITH BREAKFAST for 3 Days and 0 Hour 40 mg WITH BREAKFAST for 3 Days and 0 Hour 30 mg WITH BREAKFAST for 3 Days and 0 Hour 20 mg WITH BREAKFAST for 3 Days and 0 Hour 10 mg WITH BREAKFAST for 3 Days and 0 Hour albuterol sulfate [Ventolin HFA] 90 mcg/actuation HFA aerosol inhaler 2 puff inhalation Q4H PRN PRN (Reason: Wheezing) Qty: 1 0RF azithromycin [Zithromax] 250 mg tablet 250 mg PO DAILY 4 Days Qty: 4 0RF Rx Instructions: start on day 2 of therapy No Action ascorbic acid (vitamin C) 500 MG tablet,chewable 500 mg PO DAILY omeprazole 20 MG capsule 20 mg PO DAILY cholecalciferol (vitamin D3) 25 mcg (1,000 unit) Capsule 25 mcg PO DAILY azithromycin [azithromycin] 250 MG tablet 250 mg PO DAILY Qty: 4 0RF albuterol sulfate [Ventolin HFA] 1 INHALER inhaler 2 puff inhalation Q4H PRN PRN (Reason: Wheezing) Qty: 1 0RF prednisone 20 mg tablet 40 mg PO DAILY Qty: 8 0RF Primary Care Provider: Kavon Parnell Referrals: Kavon Parnell MD [Primary Care Provider] - 3-5 Days if not improving Disposition Disposition: Home, Self Care
[2021-12-05] MEDS: Ipratropium/Albuterol Sulfate 3 ML AMPUL.NEB INHALATION ×2 (20:32→22:33)
[2021-12-05] MEDS: 0.9% Normal Saline 1,000 ML 150 ML IV (20:39)
[2021-12-05] MEDS: MethylPREDNISolone 125 MG/2 ML Vial IV (20:39)
--- NOTE | 2021-12-05 20:39 | RAD_ITS ---
STUDY: X-RAY CHEST REASON FOR EXAM: Female, 36 years old. sob TECHNIQUE: Single AP portable view of the chest. COMPARISON: 04/02/2021 FINDINGS: The lungs are clear and expanded. There is no demonstrated pleural abnormality. Normal size heart. Normal mediastinum and gay. Normal visualized pulmonary arteries. Normal visualized aortic arch and descending thoracic aorta. Normal visualized thoracic spine. Normal visualized ribs, clavicles, and shoulders. There is no demonstrated abnormality of the visualized soft tissue structures of the upper abdomen. RAD/Chest 1 View (Portable) IMPRESSION: Normal x-ray examination of the chest. Electronically Signed: Mart Covington MD at 22:03 EDT ,
[2021-12-05 20:43] LABS: Absolute Lymphocyte Count 2.75 X10^3/uL (0.83-4.51); Absolute Neutrophil Count 4.3 X10^3/uL (2.0-7.7); Basophil# 0.04 X10^3/uL; Basophil% 0.5 % (0-1); Eosinophil# 0.27 X10^3/uL; Eosinophils% 3.3 % (0-5); Hemoglobin 15.5 g/dL (12.0-15.0); Lymphocyte # 2.75 X10^3/ul (0.83-4.51); Lymphocyte % 33.9 % (19-41); Mean Corp Hgb Conc 34.4 g/dL (32-36); Mean Corpuscular Hgb 33.1 pg (27.0-32.0); Mean Corpuscular Volume 96.2 fL (81-99); Mean Platelet Vol. 12.2 fl (6.2-12.0); Monocyte# 0.76 X10^3/uL; Monocyte% 9.4 % (0-10); NRBC Flagged by Analyzer 0 % (0-5); Neutrophil # 4.28 X10^3/uL (2.7-7.7); Neutrophil % 52.7 % (47-70); Platelet Count 238 K/mm3 (150-450); RBC Distribution Width CV 13.1 % (11.6-14.6); RBC Distribution Width SD 46.5 fl (35.1-43.9); Red Blood Count 4.68 M/mm3 (4.2-5.4); White Blood Count 8.1 K/mm3 (4.4-11.0)
[2021-12-05] MEDS: Albuterol 2.5 MG/3 ML VIAL.NEB. INHALATION ×4 (20:59→22:33)
[2021-12-05 21:02] LABS: Anion Gap 6 (5-15); BUN 14 mg/dL (7-18); BUN/Creat Ratio 13.5 RATIO (10-20); Calcium,Total 9.1 mg/dL (8.5-10.1); Chloride 108 mmol/L (98-107); Creatinine, Serum 1.04 mg/dL (0.55-1.02); EST Glomerular Filtration Rate 63 mL/min (>60); Est Glom Filt Rate - Afr Amer 76 mL/min (>60); Estimated Creatinine Clearance 73.99 ml/min; Glucose 148 mg/dL (74-106); Potassium 3.7 mmol/L (3.5-5.1); Sodium Level 141 mmol/L (136-145); Troponin-I HS 6 pg/mL (3.0-54.0)
--- NOTE | 2021-12-05 21:10 | CT_ITS ---
STUDY: CTA CHEST REASON FOR EXAM: Female, 36 years old. sob, elevated d-dimer RADIATION DOSAGE (If Supplied By Facility): CTDIvol = ( 17.42 ) mGy, DLP = ( 523.92 ) mGycm TECHNIQUE: The examination was performed with the intravenous administration of IV 100mL Isovue-370. Post-processing of the angiographic images was performed, with multiplanar reformation and 3D reconstruction. Individualized dose optimization techniques were used for this CT. COMPARISON: 04/26/2021, chest x-ray earlier today FINDINGS: Normal enhancement of the main pulmonary artery and right and left pulmonary arteries. Normal enhancement of the bilateral peripheral pulmonary arteries. There is no demonstrated pulmonary embolism. Normal thoracic aorta and visualized great vessels. There is no demonstrated aortic dissection. Normal heart and pericardium. Normal mediastinum. Normal hilar regions. Normal visualized trachea and bronchi. The lungs are well expanded. Normal pulmonary parenchyma. Normal pleura. Normal chest wall structures. Normal osseous structures. Normal visualized upper abdomen. CT/CTA Chest W/WO Contrast IMPRESSION: Normal CTA chest examination, without a demonstrated pulmonary embolism or arterial dissection. Electronically Signed: Mart Covington MD at 22:30 EDT ,
[2021-12-05 22:08] VITALS: BP 132/102; PULSE 96; RESP 18; O2SAT 93
[2021-12-05 22:25] VITALS: BP 138/102; PULSE 99; RESP 18; O2SAT 87
[2021-12-05 22:35] VITALS: PULSE 98; RESP 20; O2SAT 92
[2021-12-05 23:03] VITALS: PULSE 111; RESP 26; O2SAT 95
[2021-12-06] MEDS: Azithromycin 250 MG Tablet 500 MG PO (00:26)
[2021-12-06 00:31] VITALS: BP 137/83; PULSE 119; RESP 18; O2SAT 94
== END 2021-12-06 00:33 | disposition home or self-care (01) ==
PROVIDERS: Emergency Provider Emergency Medicine; PCP Family Medicine; Visit Provider Emergency Medicine
DX: J20.9 Acute bronchitis, unspecified (principal); B34.9 Viral infection, unspecified; Z20.822 Contact with and (suspected) exposure to COVID-19; K21.9 Gastro-esophageal reflux disease without esophagitis; F17.210 Nicotine dependence, cigarettes, uncomplicated; Z79.899 Other long term (current) drug therapy
CPT/HCPCS: 71045; 71275; 80048; 84484; 85025; 85379; 87428; 93005; 94640; 96361; 96374; 99285; J7030; Q9967; A4216

== ENCOUNTER 2022-11-13 19:29 | Emergency (ER) | payer MEDICAID, SELFPAY ==
[2022-11-13 19:30] VITALS: BP 143/98; PULSE 97; RESP 17; TEMP 36; O2SAT 98; BMI 49.4
--- NOTE | 2022-11-13 19:36 | EKG12_ITS ---
Test Reason : CP Blood Pressure : / mmHG Vent. Rate : 088 BPM Atrial Rate : 088 BPM P-R Int : 140 ms QRS Dur : 094 ms QT Int : 360 ms P-R-T Axes : 047 062 047 degrees QTc Int : 435 ms Normal sinus rhythm Normal ECG Confirmed by MARY CANTU ([id number]), publication editor RADHA DC ([id number]) on 11/22/2022 1:59:45 PM Referred By: MALENA Confirmed By:MARY CANTU
--- NOTE | 2022-11-13 19:43 | EX.ED.DYSGE1 ---
HPI <MALATHI Morgan - Last Filed: 11/13/22 21:47> History of Present Illness Chief Complaint: Chest Pain Narrative Narrative: Patient presenting today due to pain to and below her left breast that started 5 days ago. She reports that now the pain seems to be worsening and is aggravated by movement, coughing, and taking deep breaths. She denies any history of blood clots, recent surgery/procedures, recent travel, recent immobilization, oral contraceptive use. She denies feeling short of breath and does not have a cardiac history. She denies a PMH of any chronic health conditions. She denies fever, chills, abdominal pain, nausea, and vomiting. PFSH <MALATHI Morgan - Last Filed: 11/13/22 21:47> PFSH Medical History Depression GERD (gastroesophageal reflux disease) Smoker Home Medications ascorbic acid (vitamin C) 500 mg chewable tablet 500 mg PO DAILY 07/20/20 [History Last Taken Unknown] omeprazole 20 mg capsule,delayed release 20 mg PO DAILY 07/20/20 [History Last Taken Unknown] cholecalciferol (vitamin D3) 25 mcg (1,000 unit) capsule 25 mcg PO DAILY 04/02/21 [History Last Taken Unknown] albuterol sulfate 90 mcg/actuation aerosol inhaler (Ventolin HFA) 2 puff inhalation Q4H PRN PRN Wheezing ##1 04/26/21 [Rx Last Taken Unknown] azithromycin 250 mg tablet 250 mg PO DAILY #4 tabs 04/26/21 [Rx Last Taken Unknown] prednisone 20 mg tablet 40 mg (2 x 20 mg) PO DAILY #8 tabs 04/26/21 [Rx Last Taken Unknown] albuterol sulfate 90 mcg/actuation aerosol inhaler (Ventolin HFA) 2 puff inhalation Q4H PRN PRN Wheezing ##1 12/06/21 [Rx Last Taken Unknown] azithromycin 250 mg tablet (Zithromax) 250 mg PO DAILY 4 days #4 tabs 12/06/21 [Rx Last Taken Unknown] prednisone 10 mg tablet See Taper PO DAILY #63 tabs 12/06/21 [Rx Last Taken Unknown] naproxen 500 mg tablet 500 mg PO BID #14 tabs 11/13/22 [Rx Last Taken Unknown] Allergy/AdvReac Type Severity Reaction Status Date / Time sulfamethoxazole Allergy Hives Verified 11/13/22 19:32 [From Bactrim] trimethoprim [From Bactrim] Allergy Hives Verified 11/13/22 19:32 doxycycline AdvReac Itching Verified 11/13/22 19:32 Surgical History History of hysterectomy Social History Smoking Status: Current every day smoker tobacco type: cigarettes ROS <MALATHI Morgan - Last Filed: 11/13/22 21:47> ROS ED Constitutional Constitutional ED: Denies chills or fever(s) Cardiovascular Cardiovascular: Reports chest pain; Denies palpitations Respiratory/Chest Respiratory/Chest: Denies cough, dyspnea or dyspnea on exertion Gastrointestinal Gastrointestinal: Denies abdominal pain, nausea or vomiting Genitourinary Genitourinary ED: Denies dysuria, hematuria or urinary urgency Musculoskeletal Musculoskeletal: Denies arthralgias or myalgias Integumentary Denies rash Neurologic Neurologic: Denies weakness EXAM <MALATHI Morgan - Last Filed: 11/13/22 21:47> Physical Exam Const Vital Signs: 11/13/22 19:30 Temperature 96.8 F L Temperature Source Temporal Pulse Rate 97 Respiratory Rate 17 Blood Pressure 143/98 H Blood Pressure Mean 113 Pulse Ox 98 Oxygen Delivery Method Room Air Positive well nourished, well developed and no apparent distress General Appearance ED: well developed HEENT Reports normocephalic and head/scalp atraumatic Mouth ED: Yes moist mucous membranes normal Eyes PERRL and EOMs intact bilaterally Neck full ROM and supple Chest Wall inspection of chest normal Chest Narrative: Chest wall tenderness to palpation anteriorly and below the left breast. Resp normal respiratory effort and clear to auscultation bilaterally Cardio regular rate and regular rhythm GI soft to palpation, non-tender, non-distended and no masses Back/Spine normal ROM and normal to inspection Extremity normal to inspection and full ROM Neuro oriented x3, CN's II-XII intact bilaterally, moves all extremities, no focal motor deficits and no sensory deficits noted Sensorium / Orientation: awake and alert Psych mental status grossly normal and thought process normal Skin no rashes or lesions noted and no wounds <Dr. Washington Roberts MD - Last Filed: 11/13/22 19:50> Physical Exam Const Vital Signs: 11/13/22 19:30 Temperature 96.8 F L Temperature Source Temporal Pulse Rate 97 Respiratory Rate 17 Blood Pressure 143/98 H Blood Pressure Mean 113 Pulse Ox 98 Oxygen Delivery Method Room Air [facility] <MALATHI Morgan - Last Filed: 11/13/22 21:47> [facility] Narrative Medical decision making narrative: Patient presenting due to pain to her left breast and below her left breast that she has had for the past 5 days that is worse with movement, taking deep breaths, coughing. She reports, it feels like somebody has punched me in the left boob. There is no erythema, ecchymosis or edema to patient's chest or breast. She does have reproducible chest tenderness anteriorly as well as below the left breast. EKG is normal sinus rhythm, chest x-ray obtained to rule out pneumothorax, pleural effusion, infiltrate, and is negative for any acute findings. She was given Toradol here for pain and on reexamination reports improvement of her symptoms. I think patient's symptoms are more likely related to costochondritis or chest wall strain. She is PERC negative. She has been encouraged to take NSAIDs and to follow-up with her PCP, I have given her prescription for naproxen. She will be discharged home in stable condition and is comfortable with plan. I have personally performed a face to face assessment of the patient and have reviewed the CHERI Note. I performed a substantive portion of the visit including all aspects of the following. My haque findings include: History is 37-year-old diabetic female with chest wall pain for the last 5 days. Worse with movement. States that it feels like someone beat the crap out of me on my left side. No history of trauma. No fever. No cardiac history. No history of DVT or PE or risk factors. She has had 5 CTs of her chest here in the last 2 years all of which have been negative. Exam is [37-year-old female no acute distress vital signs stable afebrile. Pulse ox 98% on room air. H EENT exam unremarkable. Neck nontender no JVD. Lungs clear to auscultation bilaterally. Heart regular rhythm no murmur. Rate about 90. No murmur. Chest wall right side is unremarkable entire left chest wall and left lateral rib cage is tender to palpation. There is no ecchymosis or bruising. No subcu air crepitance. No signs of trauma. No bruising. No redness. No rash. No bony deformities. Abdomen soft nontender. Moving all 4 extremities. Calves are nontender without edema. Back is nontender other than her left lateral posterior ribs. She is awake and alert.] Medical Decision Making [patient with obviously reproducible chest wall pain and may be costochondritis or chest wall strain but she has no history nor can she remember anything that would have injured her chest wall. Toradol for pain. Initial EKG shows a sinus rhythm no signs of SC or ischemia. Will obtain a plain chest x-ray. I do not think she needs a cardiac work-up. I do not think she needs a work-up for pulmonary emboli.] Other additions or changes: [None] Lab Data Attestation: I reviewed the patient's lab results. Labs: Laboratory Results - last 24 hr 11/13/22 20:15 POC Glucose 178 H Radiography X-Ray: Read by ED Physician and Read by Radiologist Diagnostic Testing: Clinical Impression(s) from Imaging Studies Chest X-Ray 11/13/22 19:55 IMPRESSION: No acute pulmonary process Electronically Signed: Al Pierre MD at 20:07 EDT Reading Location ID and State: [facility] / [place] , Service support , EKG Initial EKG: Comments: 88 bpm, normal sinus rhythm, no ST elevation, reviewed and interpreted by attending ED physician <Dr. Washington Roberts MD - Last Filed: 11/13/22 19:50> [facility] Narrative Medical decision making narrative: I have personally performed a face to face assessment of the patient and have reviewed the CHERI Note. I performed a substantive portion of the visit including all aspects of the following. My haque findings include: History is 37-year-old diabetic female with chest wall pain for the last 5 days. Worse with movement. States that it feels like someone beat the crap out of me on my left side. No history of trauma. No fever. No cardiac history. No history of DVT or PE or risk factors. She has had 5 CTs of her chest here in the last 2 years all of which have been negative. Exam is [37-year-old female no acute distress vital signs stable afebrile. Pulse ox 98% on room air. H EENT exam unremarkable. Neck nontender no JVD. Lungs clear to auscultation bilaterally. Heart regular rhythm no murmur. Rate about 90. No murmur. Chest wall right side is unremarkable entire left chest wall and left lateral rib cage is tender to palpation. There is no ecchymosis or bruising. No subcu air crepitance. No signs of trauma. No bruising. No redness. No rash. No bony deformities. Abdomen soft nontender. Moving all 4 extremities. Calves are nontender without edema. Back is nontender other than her left lateral posterior ribs. She is awake and alert.] Medical Decision Making [patient with obviously reproducible chest wall pain and may be costochondritis or chest wall strain but she has no history nor can she remember anything that would have injured her chest wall. Toradol for pain. Initial EKG shows a sinus rhythm no signs of SC or ischemia. Will obtain a plain chest x-ray. I do not think she needs a cardiac work-up. I do not think she needs a work-up for pulmonary emboli.] Other additions or changes: [None] History & Record Review Discussion w/independent historian: Patient Additional record(s) reviewed:: Prior inpatient record, Prior outpatient record, Prior ED visit and Prior labs Lab Data Labs: Laboratory Results - last 24 hr 11/13/22 20:15 POC Glucose 178 H Radiography Chest X-Ray - ED: 2 View, Read by ED Physician, Normal, Heart, Lungs, Mediastinum, Bony Structures and No Acute Disease Diagnostic Testing: Clinical Impression(s) from Imaging Studies Chest X-Ray 11/13/22 19:55 IMPRESSION: No acute pulmonary process Electronically Signed: Al Pierre MD at 20:07 EDT Reading Location ID and State: [facility] / [place] , Service support , Discharge Plan Triage Chief Complaint: Chest Pain ED Midlevel Provider: Mayra Umaña ED Provider: Washington Roberts Dx/Rx/DC Orders Clinical Impression: Chest wall pain Instructions: Costochondritis Prescriptions: New naproxen 500 mg tablet 500 mg PO BID Qty: 14 0RF No Action ascorbic acid (vitamin C) 500 MG tablet,chewable 500 mg PO DAILY omeprazole 20 MG capsule 20 mg PO DAILY cholecalciferol (vitamin D3) 25 mcg (1,000 unit) Capsule 25 mcg PO DAILY azithromycin [azithromycin] 250 MG tablet 250 mg PO DAILY Qty: 4 0RF albuterol sulfate [Ventolin HFA] 1 INHALER inhaler 2 puff inhalation Q4H PRN PRN (Reason: Wheezing) Qty: 1 0RF prednisone 20 mg tablet 40 mg PO DAILY Qty: 8 0RF prednisone 10 mg tablet See Taper PO DAILY Qty: 63 0RF Taper: Prednisone Taper 60 mg WITH BREAKFAST for 3 Days and 0 Hour 50 mg WITH BREAKFAST for 3 Days and 0 Hour 40 mg WITH BREAKFAST for 3 Days and 0 Hour 30 mg WITH BREAKFAST for 3 Days and 0 Hour 20 mg WITH BREAKFAST for 3 Days and 0 Hour 10 mg WITH BREAKFAST for 3 Days and 0 Hour albuterol sulfate [Ventolin HFA] 90 mcg/actuation HFA aerosol inhaler 2 puff inhalation Q4H PRN PRN (Reason: Wheezing) Qty: 1 0RF azithromycin [Zithromax] 250 mg tablet 250 mg PO DAILY 4 Days Qty: 4 0RF Rx Instructions: start on day 2 of therapy Primary Care Provider: Kavon Parnell Referrals: Kavon Parnell MD [Primary Care Provider] - 5-7 Days Activity Restrictions/Additional Instructions: Follow-up with your PCP and return for any worsening of your symptoms. Disposition Disposition: Home, Self Care Discharge Date/Time: 11/13/22 21:09
--- NOTE | 2022-11-13 19:55 | RAD_ITS ---
STUDY: X-RAY CHEST REASON FOR EXAM: Female, 37 years old. Atypical chest pain TECHNIQUE: PA and lateral views of the chest. COMPARISON: 12/05/2021 FINDINGS: The lungs are clear and expanded. There is no demonstrated pleural abnormality. Normal size heart. Normal mediastinum and gay. Normal visualized pulmonary arteries. Normal visualized aortic arch and descending thoracic aorta. Normal visualized thoracic spine. Normal visualized ribs, clavicles, and shoulders. There is no demonstrated abnormality of the visualized soft tissue structures of the upper abdomen. RAD/Chest PA and Lateral IMPRESSION: No acute pulmonary process Electronically Signed: Al Pierre MD at 20:07 EDT ,
[2022-11-13] MEDS: Ketorolac 60 MG/2 ML Vial IM (20:09)
[2022-11-13 20:33] LABS: Bedside Glucose 178 mg/dL (74-106)
== END 2022-11-13 21:09 | disposition home or self-care (01) ==
PROVIDERS: Emergency Provider Emergency Medicine; PCP Family Medicine; Visit Provider Emergency Medicine
DX: R07.89 Other chest pain (principal); R07.81 Pleurodynia; N64.4 Mastodynia; K21.9 Gastro-esophageal reflux disease without esophagitis; F17.210 Nicotine dependence, cigarettes, uncomplicated; Z79.899 Other long term (current) drug therapy
CPT/HCPCS: 71046; 82962; 93005; 96372; 99282

== ENCOUNTER 2023-08-10 13:18 | Emergency (ER) | payer MEDICAID, SELFPAY ==
[2023-08-10 13:18] VITALS: BP 139/104; BP 142/16; PULSE 91; PULSE 93; RESP 14; TEMP 36.6; O2SAT 96; BMI 47.4
--- NOTE | 2023-08-10 13:46 | EDS_ITS ---
HPI HPI - Female History of Present Illness Chief Complaint: Complaint Narrative Narrative: Patient presenting today after being sent over from the urgent care due to a UA sample that showed protein in her urine. She reports that she went to urgent care with concerns for a UTI as she has had urinary frequency and suprapubic pressure over the past few days. She did recently have a UTI a couple weeks ago and was treated with Macrobid. Today, they told her that there was proteinuria and that she should go to the ER for evaluation. She reports that she has had bilateral flank pain, worse on the right and intermittent nausea. She denies any history of kidney stones, fevers, abdominal pain, or vomiting. PFSH PFSH Medical History Depression GERD (gastroesophageal reflux disease) Smoker Home Medications ascorbic acid (vitamin C) 500 mg chewable tablet 500 mg PO DAILY 07/20/20 [History Last Taken Unknown] omeprazole 20 mg capsule,delayed release 20 mg PO DAILY 07/20/20 [History Last Taken Unknown] cholecalciferol (vitamin D3) 25 mcg (1,000 unit) capsule 25 mcg PO DAILY 04/02/21 [History Last Taken Unknown] albuterol sulfate 90 mcg/actuation aerosol inhaler (Ventolin HFA) 2 puff inhalation Q4H PRN PRN Wheezing ##1 04/26/21 [Rx Last Taken Unknown] azithromycin 250 mg tablet 250 mg PO DAILY #4 tabs 04/26/21 [Rx Last Taken U nknown] prednisone 20 mg tablet 40 mg (2 x 20 mg) PO DAILY #8 tabs 04/26/21 [Rx Last Taken Unknown] albuterol sulfate 90 mcg/actuation aerosol inhaler (Ventolin HFA) 2 puff inhalation Q4H PRN PRN Wheezing ##1 12/06/21 [Rx Last Taken Unknown] azithromycin 250 mg tablet (Zithromax) 250 mg PO DAILY 4 days #4 tabs 12/06/21 [Rx Last Taken Unknown] prednisone 10 mg tablet See Taper PO DAILY #63 tabs 12/06/21 [Rx Last Taken Unknown] naproxen 500 mg tablet 500 mg PO BID #14 tabs 11/13/22 [Rx Last Taken Unknown] levofloxacin 750 mg tablet 750 mg PO DAILY 4 days #4 tabs 08/10/23 [Rx Last Taken Unknown] Allergy/AdvReac Type Severity Reaction Status Date / Time sulfamethoxazole Allergy Hives Verified 08/10/23 13:18 [From Bactrim] trimethoprim [From Bactrim] Allergy Hives Verified 08/10/23 13:18 doxycycline AdvReac Itching Verified 08/10/23 13:18 Surgical History History of hysterectomy Social History Smoking Status: Current every day smoker tobacco type: cigarettes ROS ROS ED Constitutional Constitutional ED: Denies fever(s) Cardiovascular Cardiovascular: Denies chest pain Respiratory/Chest Respiratory/Chest: Denies cough or dyspnea Gastrointestinal Gastrointestinal: Reports nausea; Denies abdominal pain or vomiting Genitourinary Genitourinary ED: Reports urinary frequency and urinary urgency; Denies dysuria or hematuria Musculoskeletal Musculoskeletal: Reports back pain Integumentary Denies rash Neurologic Neurologic: Denies weakness EXAM Physical Exam Const Vital Signs: 08/10/23 13:18 08/10/23 13:18 Temperature 98 F Temperature Source Temporal Pulse Rate 91 93 Respiratory Rate 14 14 Blood Pressure 142/16 H 139/104 H Blood Pressure Mean 58 115 Pulse Ox 96 96 Oxygen Delivery Method Room Air Room Air Positive well nourished, well developed and no apparent distress General Appearance ED: well developed HEENT Reports normocephalic and head/scalp atraumatic Mouth ED: Yes moist mucous membranes normal Eyes PERRL and EOMs intact bilaterally Neck full ROM and supple Chest Wall inspection of chest normal Resp normal respiratory effort and clear to auscultation bilaterally Cardio regular rate and regular rhythm GI soft to palpation, non-tender, non-distended and no masses Back/Spine normal ROM and normal to inspection General Back: CVA tenderness bilateral Extremity normal to inspection and full ROM Neuro oriented x3, CN's II-XII intact bilaterally, moves all extremities, no focal motor deficits and no sensory deficits noted Sensorium / Orientation: awake and alert Psych mental status grossly normal and thought process normal Skin no rashes or lesions noted and no wounds MDM MDM MDM Narrative Medical decision making narrative: Patient is well-appearing and in no acute distress. She is afebrile, slightly hypertensive but otherwise vitals are unremarkable. I did review her UA results, she had a urine dip that showed positive nitrates, positive leukocytes, and protein in the urine. Repeat UA with microscopy will be obtained here. She does have 2+ bacteria, 50-100 white blood cells, 500 leukocyte esterase, 100 protein, 10-25 RBCs, and positive nitrates. She was recently on Macrobid for UTI that she started 07/13. We will treat her for pyelonephritis with Levaquin with first dose here, she was also given Toradol for pain. Strict return instructions given and patient will be discharged home in stable condition. Lab Data Labs: Laboratory Results - last 24 hr 08/10/23 14:04 Urine Color Yellow Urine Clarity Cloudy Urine pH 5.0 Ur Specific [place] 1.020 Urine Protein 100 H Urine Glucose (UA) Normal Urine Ketones Negative Urine Occult Blood 250 H Urine Nitrite Positive H Urine Bilirubin Negative Urine Urobilinogen Normal Ur Leukocyte Esterase 500 H Urine RBC 10-25 SEEN Urine WBC 50-100 SEEN Ur Squamous Epith Cells 0-5 SEEN Urine Bacteria 2+ Urine Mucus 0 SEEN Discharge Plan Triage Chief Complaint: Complaint ED Midlevel Provider: Mayra Umaña ED Provider: Kristyn Encarnacion Dx/Rx/DC Orders Clinical Impression: Pyelonephritis Instructions: ED Pyelonephritis, Female (Adult) Prescriptions: New levofloxacin 750 mg tablet 750 mg PO DAILY 4 Days Qty: 4 0RF No Action ascorbic acid (vitamin C) 500 MG tablet,chewable 500 mg PO DAILY omeprazole 20 MG capsule 20 mg PO DAILY cholecalciferol (vitamin D3) 25 mcg (1,000 unit) Capsule 25 mcg PO DAILY azithromycin [azithromycin] 250 MG tablet 250 mg PO DAILY Qty: 4 0RF albuterol sulfate [Ventolin HFA] 1 INHALER inhaler 2 puff inhalation Q4H PRN PRN (Reason: Wheezing) Qty: 1 0RF prednisone 20 mg tablet 40 mg PO DAILY Qty: 8 0RF prednisone 10 mg tablet See Taper PO DAILY Qty: 63 0RF Taper: Prednisone Taper 60 mg WITH BREAKFAST for 3 Days and 0 Hour 50 mg WITH BREAKFAST for 3 Days and 0 Hour 40 mg WITH BREAKFAST for 3 Days and 0 Hour 30 mg WITH BREAKFAST for 3 Days and 0 Hour 20 mg WITH BREAKFAST for 3 Days and 0 Hour 10 mg WITH BREAKFAST for 3 Days and 0 Hour albuterol sulfate [Ventolin HFA] 90 mcg/actuation HFA aerosol inhaler 2 puff inhalation Q4H PRN PRN (Reason: Wheezing) Qty: 1 0RF azithromycin [Zithromax] 250 mg tablet 250 mg PO DAILY 4 Days Qty: 4 0RF Rx Instructions: start on day 2 of therapy naproxen 500 mg tablet 500 mg PO BID Qty: 14 0RF Primary Care Provider: Kavon Parnell Referrals: Kavon Parnell MD [Primary Care Provider] - 3-5 Days Activity Restrictions/Additional Instructions: Please return for any fevers or worsening of your symptoms. Disposition Disposition: Home, Self Care
[2023-08-10 14:08] LABS: Mucous, Urine 0 SEEN /hpf (<or=2+)
[2023-08-10 14:15] LABS: Color, Urine Yellow (Yellow); Glucose, Dipstick Normal (Normal); Ketone-Dipstick Negative (Negative); Leukocyte Esterase-Dipstick 500 /ul (Negative); Nitrite-Dipstick Positive (Negative); Occult Blood-Urine 250 /ul (Negative); Protein-Dipstick 100 mg/dl (Negative); Urine Bilirubin Dipstick Negative (Negative); Urine Clarity Cloudy (Clear); Urine Urobilinogen Normal (Normal)
[2023-08-10 14:36] LABS: Red Blood Cells-Urine 10-25 SEEN /hpf (0-5); White Blood Cells 50-100 SEEN /hpf (0-5)
[2023-08-10 14:37] LABS: Bacteria 2+ /hpf (None Seen); Squamous Epithelial Cells - UA 0-5 SEEN /hpf (5-10)
[2023-08-10] MEDS: Ketorolac 15 MG/ML Vial IM (14:52)
[2023-08-10] MEDS: levoFLOXacin 750 MG Tablet PO (15:15)
== END 2023-08-10 15:18 | disposition home or self-care (01) ==
PROVIDERS: Physician Assistant; Emergency Provider Emergency Medicine; PCP Family Medicine; Visit Provider Emergency Medicine
DX: N12 Tubulo-interstitial nephritis, not specified as acute or chronic (principal); F32.A Depression, unspecified; K21.9 Gastro-esophageal reflux disease without esophagitis; F17.210 Nicotine dependence, cigarettes, uncomplicated; Z79.899 Other long term (current) drug therapy
CPT/HCPCS: 81001; 87077; 87086; 87088; 87186; 96372; 99282